=== PATIENT | male | born 1940 | race Caucasian/White ===

== ENCOUNTER 2016-11-27 08:17 | Day surgery (SDC) | payer MEDICARE, OTHER ==
[2016-11-22 12:07] VITALS: BMI 34.2
[~2016-11-27 08:17] MED LIST: LIDOCAINE 1% 20 ML VIAL (10MG/ML) FOR IV START INTRADERMA PRN
[2016-11-27 09:28] VITALS: RESP 16; TEMP 97.3
[2016-11-27] MEDS: LACTATED RINGERS 1,000 ML IV ONE ×2 (09:35→09:44)
[2016-11-27] MEDS ORDERED: LIDOCAINE 1% 20 ML VIAL (10MG/ML) FOR IV START INTRADERMA ONE (09:36)
[2016-11-27] MEDS ORDERED: PROPOFOL 10 MG/ML 20 ML VIAL IV ONE (09:47)
[2016-11-27 10:07] VITALS: PULSE 53
--- NOTE | 2016-11-27 10:22 | P.PCN ---
Date of Procedure: 11/27/16 Procedure(s) Performed: Procedure: Esophagogastroduodenoscopy and biopsy. Preoperative diagnosis: Dysphagia. Postoperative diagnosis: 1. Zenker's diverticulum. 2. Very small sliding hiatal hernia with no obvious esophagitis or complicated reflux disease. 3. Mild gastritis and duodenitis. Preparation and sedation: Was provided by anesthesia. Brief clinical history: The patient is a 76-year-old male who is scheduled for this evaluation because of dysphagia that he has had for some time with worsening over the last few months including episodes of feeling food sticking in his throat and instances of having to bring the food back up. No significant reflux symptoms. No alarm symptoms such as bleeding or weight loss. This would be his first upper endoscopy. Procedure: With the patient on his left lateral decubitus position and after informed consent and adequate sedation, I passed the Olympus GIF-100 60 video upper endoscope through the cricopharyngeus down the esophagus. The endoscope was then passed into the stomach which was insufflated with air and inspected in detail including the retroflex view in the cardia. The endoscope was then passed through the pylorus into the duodenum. GE junction was around 40 cm from the incisors and there was a very small sliding hiatal hernia, less than 1 cm in size. There was no evidence of esophagitis or complicated reflux disease including any evidence of strictures or Cherry's esophagus. The stomach showed minimal mottling and erythema in the antrum and the duodenum showed minimal erythema with no ulcers or erosions. Pyloric channel did not show any ulcers. I obtained multiple biopsies from the duodenum, antrum and esophagus then the endoscope was withdrawn back to the esophagus and hypopharyngeal area. At that point, I continued the examination of the hypopharynx and the cricopharyngeal area trying to pass the endoscope back and forth. It was apparent through some of these steps that the patient had a Zenker's diverticulum. It appeared small and there was no residual food or other material in the diverticulum. The patient tolerated the procedure well. Plan: I summarized the findings to the patient. The patient will follow up in the office and I Will schedule a barium swallow before that. I would make further plans based on the results of the biopsies and the barium swallow. Consideration can be given for scheduling a motility study if the size of the diverticulum on barium swallow does not seem to explain totally his symptoms. I would keep you updated on his progress. He will follow up with you as planned.
[2016-11-27 10:31] VITALS: BP 133/81
== END 2016-11-27 11:29 | disposition home or self-care (01) ==
LOC: ORWHC2ENDO 08:17
DX: K29.50 Unspecified chronic gastritis without bleeding (principal); K22.5 Diverticulum of esophagus, acquired; K44.9 Diaphragmatic hernia without obstruction or gangrene; K29.80 Duodenitis without bleeding; K20.9 Esophagitis, unspecified; I10 Essential (primary) hypertension; E07.9 Disorder of thyroid, unspecified; G47.33 Obstructive sleep apnea (adult) (pediatric); Z79.899 Other long term (current) drug therapy; Z91.040 Latex allergy status; Z91.048 Other nonmedicinal substance allergy status; Z91.09 Other allergy status, other than to drugs and biological substances; Z86.718 Personal history of other venous thrombosis and embolism
CPT/HCPCS: 88305; 88342; 43239; J2704

== ENCOUNTER → 2016-11-30 | Outpatient (CLI) | payer MEDICARE, OTHER ==
--- NOTE | 2016-11-30 10:36 | FL ---
EXAMINATION: Cervical and Thoracic Esophagram DATE OF EXAM: 11/30/2016 9:35 AM CLINICAL INDICATION: 76-year-old male dysphagia, food getting stuck in throat, and Zenker's diverticu lum seen on EGD performed 3 days ago. COMPARISON: Total Fluoroscopy Time: 2.2 minutes FINDINGS: The swallowing mechanism is normal. Moderate sized Zenker's diverticulum opposite the C6 level is see n projecting posteriorly and off towards the right. This progressively accumulates swallowed contrast and remains filled at the end of the exam. The remainder of the hypopharyngeal anatomy is preserved. The cervical and thoracic portions have a normal course and caliber caliber. There is mild tertiary p eristaltic contractions and some blunting of the normal secondary stripping waves resulting in prolon ged pooling of contrast in the esophagus when the patient is supine and prone. The mucosa is normal and no persistent filling defect is encountered. There is a tiny sliding hiatal hernia seen. No gastroesophageal reflux is identified during the cours e of the exam. IMPRESSION: 1. Moderate sized Zenker's diverticulum opposite the C6 level projecting posteriorly and off towards the right. This accumulates contrast and remains filled at the end of the exam. 2. Mild tertiary peristalsis and blunted secondary stripping waves could represent early presbyesopha carlo. 3. Tiny sliding hiatal hernia.
== END | disposition home or self-care (01) ==
LOC: RADFLWHC 08:31
DX: K22.5 Diverticulum of esophagus, acquired (principal); K44.9 Diaphragmatic hernia without obstruction or gangrene; R19.2 Visible peristalsis
CPT/HCPCS: 74220

== ENCOUNTER → 2017-02-01 | Outpatient (CLI) | payer MEDICARE, OTHER ==
--- NOTE | 2017-02-01 21:20 | PN ---
77-year-old gentleman who has been followed in the sleep center for treatment of obstructive sleep apnea/hypopnea syndrome. Patient continued to use his CPAP equipment every night and according to his family he does not snore and does not have episodes of changes of breathing during this sleep. [place] Sleepiness Scale is in normal range. I checked patient's CPAP unit. He uses equipment 100% of the time for more than 4 hours. He decreased his weight from 243 pounds down to 239 pounds. CPAP pressure is 10 cm of water. MEDICATIONS: 1. Diovan. 2. Levothyroxine. 3. Triamterene. During physical exam, the patient in no distress. VITAL SIGNS: BP 128/79, HR 56, RR 16. Height 5 feet 9 inches, weight 239, body mass index 35.2. Temp is 98.0. HEENT: PERRLA, EOMI oropharynx low position of soft palate, small oropharyngeal air space. Neck: Supple. No JVD. Thyroid is not palpable. LUNGS: Clear to percussion and to auscultation. Good air exchange. No wheezing or rhonchi. HEART: S1, S2 regular. No murmurs, gallops, or rubs. ABDOMEN: Obese. Soft and nontender. Bowel sounds are present. No organomegaly appreciated. EXTREMITIES: No clubbing or cyanosis. UNIVERSITY INTERN: Awake, alert, and oriented x3. Cranial nerves 2 to 7 intact. There is no fasciculation or atrophy noted. No focal deficits observed. IMPRESSION: 1. Obstructive sleep apnea/hypopnea syndrome on control with CPAP at the pressure of 10 cm of water. Patient demonstrated 100% compliance with treatment benefitting from treatment. 2. Hypertension. 3. Hypothyroidism. 4. Allergies. 5. Hyperlipidemia. PLAN: 1. The patient will continue to use CPAP equipment every night for the whole night. 2. Prescription for all necessary CPAP supplies. 3. Sleep hygiene with regular time in bed for at least 8 hours. 4. No driving if feeling any sleepiness. Thank you very much for allowing me to participate in the management of your patient. Sincerely, Tylor Stauffer MD, PhD, FAASM. Diplomat of [place] [employer], Sleep Medicine Board by [place] [employer] Specialties [place] [employer] Contact Printer of [facility]
== END | disposition home or self-care (01) ==
LOC: SLEEP 15:59
PROVIDERS: ATTEND Internal Medicine
DX: G47.33 Obstructive sleep apnea (adult) (pediatric) (principal); I10 Essential (primary) hypertension; E03.9 Hypothyroidism, unspecified; Z91.09 Other allergy status, other than to drugs and biological substances; E78.5 Hyperlipidemia, unspecified; Z79.899 Other long term (current) drug therapy

== ENCOUNTER → 2017-06-01 | Outpatient (CLI) | payer MEDICARE, OTHER ==
[2017-06-01 08:59] LABS: Basophils # (A) 0.1 k/uL (0-0.2); Basophils % (A) 1 %; CH 30.2; Eosinophils # (A) 0.1 k/uL (0-0.7); Eosinophils % (A) 2 %; HCT 44.9 % (39.0-53.0); HDW 2.44; HGB 14.7 gm/dL (13.0-17.5); Luc # (Auto) 0.33; Luc % (Auto) 4; Lymphocytes # (A) 3.9 k/uL (1.0-4.8); Lymphocytes % (A) 46 %; MCH 30.1 pg (25.0-35.0); MCHC 32.7 g/dL (31.0-37.0); Mean Platelet Volume 7.7; Monocytes # (A) 0.6 k/uL (0-1.0); Monocytes % (A) 6 %; Neutrophils # (A) 3.6 k/uL (1.3-7.7); Neutrophils % (A) 42 %; RBC 4.88 m/uL (4.30-5.90); RDW 14.4 % (11.5-15.5); WBC 8.7 k/uL (3.8-10.6); WBC (Perox) 8.58
[2017-06-01 11:13] LABS: ALT 46 U/L (21-72); AST 30 U/L (17-59); Alkaline Phosphatase 66 U/L (38-126); Anion Gap 12 mmol/L; Blood Urea Nitrogen 19 mg/dL (9-20); C Reactive Protein 6.8 mg/L (<10.0); Calcium 9.9 mg/dL (8.4-10.2); Carbon Dioxide 26 mmol/L (22-30); Chloride 105 mmol/L (98-107); Cholesterol 233 mg/dL (<200); Creatine Kinase 72 U/L (55-170); Glucose 102 mg/dL (74-99); HDL Cholesterol 106 mg/dL (40-60); Non-African American GFR(MDRD) >60 (>60 ml/min/1.73 sqM); Potassium 4.3 mmol/L (3.5-5.1); Sodium 143 mmol/L (137-145); Total Bilirubin 0.6 mg/dL (0.2-1.3); Triglycerides 141 mg/dL (<150)
[2017-06-01 12:28] LABS: Erythrocyte Sedimentation Rate 8 mm/hr (0-15)
[2017-06-01 12:31] LABS: Hemoglobin A1C 5.8 % (4.2-6.1)
== END | disposition home or self-care (01) ==
LOC: LABWHC1 08:33
PROVIDERS: ATTEND Internal Medicine
DX: Z00.00 Encounter for general adult medical examination without abnormal findings (principal); N40.0 Benign prostatic hyperplasia without lower urinary tract symptoms; N18.3 Chronic kidney disease, stage 3 (moderate); E78.5 Hyperlipidemia, unspecified; I10 Essential (primary) hypertension; E55.9 Vitamin D deficiency, unspecified; G47.33 Obstructive sleep apnea (adult) (pediatric)
CPT/HCPCS: 36415; 80053; 80061; 82306; 82550; 83036; 84153; 84443; 85025; 85652; 86140

== ENCOUNTER → 2018-02-25 | Outpatient (CLI) | payer MEDICARE, OTHER ==
[2018-02-25 15:38] LABS: Potassium 4.2 mmol/L (3.5-5.1)
[2018-02-25 15:39] LABS: Phosphorus 4.4 mg/dL (2.5-4.5)
== END | disposition home or self-care (01) ==
LOC: LABWHC1 15:09
PROVIDERS: ATTEND Internal Medicine
DX: E87.8 Other disorders of electrolyte and fluid balance, not elsewhere classified (principal); I10 Essential (primary) hypertension
CPT/HCPCS: 36415; 80048; 83735; 84100

== ENCOUNTER → 2018-02-28 | Outpatient (CLI) | payer MEDICARE, OTHER ==
--- NOTE | 2018-02-28 15:46 | SFUN ---
SLEEP CENTER FOLLOW UP NOTE DATE OF SERVICE: 02/28/2018 78-year-old gentleman has been followed in Sleep Center for treatment of obstructive sleep apnea-hypopnea syndrome. Patient is on treatment with CPAP for about 33 years and he continued to use CPAP effectively every night without significant problems related to mask fitting, pressure and humidification. I checked his CPAP unit. CPAP pressure is 10 cm of water. He is using it 100% of the time. Average using usage is 8 hours by the reading from the machine. [place] Sleepiness Scale today is 3. MEDICATIONS: Diovan, levothyroxine, triamterene. PHYSICAL EXAM: GENERAL Patient in no distress. VITAL SIGNS BP 146/75, HR 72, RR 16, height 5 feet 9 inches, weight 227, BMI 33.3, temperature 98.3, oxygen saturation room air 96%. HEENT PERRLA, EOMI, evaluation of oropharynx showed moderately low position of soft palate. NECK Supple, no JVD. Thyroid is not palpable. LUNGS Clear to percussion and to auscultation. Good air exchange. No wheezing or rhonchi. HEART S1, S2 regular. No murmurs, gallops, or rubs. ABDOMEN Slightly obese. Soft and nontender. Bowel sounds are present. No organomegaly appreciated. EXTREMITIES No clubbing or cyanosis. TECHNICAL SALES CONSULTANT Awake, alert, and oriented X3. Cranial nerves 2 to 7 intact. There is no fasciculation or atrophy. noted. No focal deficits observed. IMPRESSION: 1. Obstructive sleep apnea-hypopnea syndrome. Patient demonstrated 100% compliance with treatment benefitting from treatment. 2. Hypertension. 3. Hypothyroidism. 4. Hyperlipidemia. 5. Allergy. 6. Status post lumbar laminectomy. 7. Status post broken left fibular in 1996. 8. Status post rotator cuff surgery in 2008. PLAN: 1. Patient will continue to use his CPAP equipment every night for the whole night. 2. Watching and losing weight. 3. Sleep hygiene with regular time in bed for at least 8 hours. 4. No driving if feeling sleepiness. 5. Will maintain prescription for all necessary CPAP supplies including mask, tube, filters. Thank you very much for allowing me to participate in management of your patient. Sincerely, Tylor Stauffer MD, PhD, FAASM Diplomat of [place] [employer] Specialties [place] [employer] Medicine [employer] Developer of [facility] [place] MMODL / IJN: [id number] /
== END | disposition home or self-care (01) ==
LOC: SLEEP 14:05
PROVIDERS: ATTEND Internal Medicine
DX: G47.33 Obstructive sleep apnea (adult) (pediatric) (principal); I10 Essential (primary) hypertension; E03.9 Hypothyroidism, unspecified; E78.5 Hyperlipidemia, unspecified; Z88.9 Allergy status to unspecified drugs, medicaments and biological substances; Z98.890 Other specified postprocedural states; Z99.89 Dependence on other enabling machines and devices; Z79.899 Other long term (current) drug therapy

== ENCOUNTER → 2018-04-29 | Outpatient (CLI) | payer MEDICARE, OTHER ==
[2018-04-29 14:26] LABS: Calcium 10.1 mg/dL (8.4-10.2); Magnesium 2.1 mg/dL (1.6-2.3); Potassium 4.9 mmol/L (3.5-5.1)
== END | disposition home or self-care (01) ==
LOC: LABWHC1 12:47
PROVIDERS: ATTEND Internal Medicine
DX: E87.8 Other disorders of electrolyte and fluid balance, not elsewhere classified (principal)
CPT/HCPCS: 36415; 80048; 83735

== ENCOUNTER → 2018-07-23 | Outpatient (CLI) | payer MEDICARE, OTHER ==
[2018-07-23 08:50] LABS: Basophils % (A) 0 %; Eosinophils # (A) 0.1 k/uL (0-0.7); Eosinophils % (A) 1 %; HCT 42.7 % (39.0-53.0); HGB 13.4 gm/dL (13.0-17.5); Lymphocytes # (A) 1.9 k/uL (1.0-4.8); Lymphocytes % (A) 30 %; MCH 28.9 pg (25.0-35.0); MCHC 31.3 g/dL (31.0-37.0); MCV 92.2 fL (80.0-100.0); Monocytes # (A) 0.5 k/uL (0-1.0); Monocytes % (A) 8 %; Neutrophils # (A) 3.6 k/uL (1.3-7.7); Neutrophils % (A) 57 %; Platelet Count 171 k/uL (150-450); RBC 4.63 m/uL (4.30-5.90); RDW 13.6 % (11.5-15.5); WBC 6.2 k/uL (3.8-10.6)
[2018-07-23 09:21] LABS: Albumin 4.2 g/dL (3.5-5.0); C Reactive Protein 6.2 mg/L (<10.0); Calcium 9.8 mg/dL (8.4-10.2); Potassium 4.5 mmol/L (3.5-5.1); Total Bilirubin 1.1 mg/dL (0.2-1.3); Total Protein 6.9 g/dL (6.3-8.2); Uric Acid 5.6 mg/dL (3.5-8.5)
[2018-07-23 09:31] LABS: T4, Free (Free Thyroxine) 1.28 ng/dL (0.78-2.19)
[2018-07-23 09:46] LABS: Prostate Specific Antigen 0.66 ng/mL (0.00-4.00)
[2018-07-23 12:41] LABS: Erythrocyte Sedimentation Rate 18 mm/hr (0-15)
[2018-07-23 18:57] LABS: Hemoglobin A1C 5.6 % (4.0-6.0)
== END | disposition home or self-care (01) ==
LOC: LABWHC1 08:03
PROVIDERS: ATTEND Internal Medicine
DX: E11.9 Type 2 diabetes mellitus without complications (principal); E78.5 Hyperlipidemia, unspecified; E55.9 Vitamin D deficiency, unspecified; I10 Essential (primary) hypertension; M10.9 Gout, unspecified; N40.0 Benign prostatic hyperplasia without lower urinary tract symptoms
CPT/HCPCS: 36415; 80053; 80061; 82306; 82550; 83036; 84153; 84439; 84443; 84550; 85025; 85652; 86140

== ENCOUNTER 2019-03-12 14:31 | Emergency (ER) | payer MEDICARE, OTHER ==
[2019-03-12 14:44] VITALS: RESP 18
--- NOTE | 2019-03-12 15:20 | ED ---
General Adult HPI - General Chief complaint: Recheck/Abnormal Lab/Rx Stated complaint: High BP Time Seen by Provider: 03/12/19 14:45 Source: patient, RN notes reviewed Mode of arrival: ambulatory Limitations: no limitations - History of Present Illness Initial comments: This is an 79-year-old male who presents to the emergency department stating that he was feeling a little woozy earlier today so he took his blood pressures blood pressure was elevated so decided come to the emergency department. Patient denies any chest pain palpitations difficulty breathing or shortness of breath. Patient denies any near syncopal episode. Patient denies any numbness weakness. Patient denies abdominal pain patient denies nausea vomiting diarrhea. Patient denies any recent fever or chills. Patient states she's on blood pressure medications that he took them today. Patient denies any headache patient denies any blurred vision. - Related Data Home Medications Medication Instructions Recorded Confirmed Cholecalciferol [Vitamin D3] 2,000 unit PO DAILY 11/22/16 11/27/16 Levothyroxine Sodium [Synthroid] 50 mcg PO QAM 11/22/16 11/27/16 Loratadine [Claritin] 10 mg PO DAILY 11/22/16 11/27/16 Acetaminophen Tab [Tylenol Tab] 650 mg PO Q6H PRN 03/12/19 03/12/19 Carboxymethylcellulose Sodium 1 - 2 drops BOTH EYES QID PRN 03/12/19 03/12/19 [Refresh Tears] Hydrochlorothiazide [Hydrodiuril] 12.5 mg PO Q48H 03/12/19 03/12/19 Hydrochlorothiazide [Hydrodiuril] 25 mg PO Q48H 03/12/19 03/12/19 Ibuprofen [Motrin Ib] 400 mg PO Q6H PRN 03/12/19 03/12/19 Losartan Potassium 100 mg PO DAILY 03/12/19 03/12/19 Allergies Allergy/AdvReac Type Severity Reaction Status Date / Time adhesive Allergy skin Verified 03/12/19 16:25 redness amlodipine [From Norvasc] Allergy Verified 03/12/19 16:25 hydralazine Allergy Verified 03/12/19 16:25 latex Allergy skin Verified 03/12/19 16:25 redness montelukast [From Singulair] Allergy Verified 03/12/19 16:25 pantoprazole [From Protonix] Allergy Verified 03/12/19 16:25 Dlqehag-Paj-Wuo Reductase Allergy muscle pain Verified 03/12/19 16:25 Inhibitor Yeast Allergy Rash/Hives Verified 03/12/19 16:25 naproxen AdvReac Abdominal Verified 03/12/19 16:25 Pain DUST Allergy Uncoded 03/12/19 16:25 Review of Systems ROS Statement: Those systems with pertinent positive or pertinent negative responses have been documented in the HPI. ROS Other: All systems not noted in ROS Statement are negative. Past Medical History Past Medical History: Deep Vein Thrombosis (DVT), Eye Disorder, Hearing Disorder / Deafness, Hypertension, Osteoarthritis (OA), Sleep Apnea/CPAP/BIPAP Additional Past Medical History / Comment(s): feels like there is fullness in the throat and food is getting stuck,uses cpap,dvt lt leg May 2016-uses compression stocking,[employer]-timothy hearing aides,macular degeneration timothy eyes,osteoarthritis lt hip History of Any Multi-Drug Resistant Organisms: None Reported Past Surgical History: Back Surgery, Orthopedic Surgery Additional Past Surgical History / Comment(s): rt shoulder repair Past Anesthesia/Blood Transfusion Reactions: Previous Problems w/ Anesthesia Additional Past Anesthesia/Blood Transfusion Reaction / Comment(s): unable to urinated after anesthesia-has had to have catheter.no hx blood transfusion Smoking Status: Former smoker - Past Family History Mother Family Medical History: Cancer, CVA/TIA Additional Family Medical History / Comment(s): uterine Father Family Medical History: CVA/TIA, Myocardial Infarction ([place]) Sister(s) Additional Family Medical History / Comment(s): heart problems General Exam - General Exam Comments Initial Comments: GENERAL: Patient is well-developed and well-nourished. Patient is nontoxic and well- hydrated and is in no acute distress. ENT: Neck is soft and supple. No significant lymphadenopathy is noted. Oropharynx is clear. Moist mucous membranes. Neck has full range of motion without eliciting any pain. EYES: The sclera were anicteric and conjunctiva were pink and moist. Extraocular movements were intact and pupils were equal round and reactive to light. Eyelids were unremarkable. PULMONARY: Unlabored respirations. Good breath sounds bilaterally. No audible rales rhonchi or wheezing was noted. CARDIOVASCULAR: There is a regular rate and rhythm without any murmurs gallops or rubs. ABDOMEN: Soft and nontender with normal bowel sounds. No palpable organomegaly was noted. There is no palpable pulsatile mass. SKIN: Skin is clear with no lesions or rashes and otherwise unremarkable. NEUROLOGIC: Patient is alert and oriented x3. Cranial nerves II through XII are grossly intact. Motor and sensory are also intact. Normal speech, volume and content. Symmetrical smile. MUSCULOSKELETAL: Normal extremities with adequate strength and full range of motion. No lower extremity swelling or edema. No calf tenderness. LYMPHATICS: No significant lymphadenopathy is noted PSYCHIATRIC: Normal psychiatric evaluation. Limitations: no limitations Course Vital Signs 03/12/19 03/12/19 03/12/19 14:43 15:30 15:40 Temperature 98.2 F Pulse Rate 57 L 53 L 50 L Respiratory 18 Rate Blood Pressure 185/90 190/80 169/91 O2 Sat by Pulse 98 98 99 Oximetry 03/12/19 03/12/19 03/12/19 15:50 16:00 16:10 Temperature Pulse Rate 51 L 53 L Respiratory Rate Blood Pressure 172/92 172/92 175/89 O2 Sat by Pulse 97 Oximetry Medical Decision Making - Medical Decision Making EKG shows a marked sinus bradycardia at 49 bpm OR interval 204 QRSs 100 QT interval 458 QTC is 413. Patient's EKG shows no ST segment elevation or depre ssion or T wave abnormalities are noted. - Lab Data Result diagrams: 03/12/19 15:28 03/12/19 15:28 Lab Results 03/12/19 03/12/19 03/12/19 Range/Units 15:28 15:28 15:28 WBC 6.7 (3.8-10.6) k/uL RBC 4.65 (4.30-5.90) m/uL Hgb 13.7 (13.0-17.5) gm/dL Hct 41.4 (39.0-53.0) % MCV 89.0 (80.0-100.0) fL MCH 29.4 (25.0-35.0) pg MCHC 33.0 (31.0-37.0) g/dL RDW 14.5 (11.5-15.5) % Plt Count 206 (150-450) k/uL Neutrophils % 65 % Lymphocytes % 24 % Monocytes % 6 % Eosinophils % 1 % Basophils % 0 % Neutrophils # 4.4 (1.3-7.7) k/uL Lymphocytes # 1.6 (1.0-4.8) k/uL Monocytes # 0.4 (0-1.0) k/uL Eosinophils # 0.1 (0-0.7) k/uL Basophils # 0.0 (0-0.2) k/uL PT 10.4 (9.0-12.0) sec INR 1.0 (<1.2) APTT 24.0 (22.0-30.0) sec Sodium 141 (137-145) mmol/L Potassium 4.4 (3.5-5.1) mmol/L Chloride 106 (98-107) mmol/L Carbon Dioxide 24 (22-30) mmol/L Anion Gap 11 mmol/L BUN 19 (9-20) mg/dL Creatinine 1.08 (0.66-1.25) mg/dL Est GFR (CKD-EPI)AfAm 75 (>60 ml/min/1.73 sqM) Est GFR (CKD-EPI)NonAf 64 (>60 ml/min/1.73 sqM) Glucose 93 (74-99) mg/dL Calcium 10.3 H (8.4-10.2) mg/dL Magnesium 1.9 (1.6-2.3) mg/dL Total Bilirubin 0.7 (0.2-1.3) mg/dL AST 30 (17-59) U/L ALT 23 (21-72) U/L Alkaline Phosphatase 63 (38-126) U/L Troponin I (0.000-0.034) ng/mL Total Protein 7.1 (6.3-8.2) g/dL Albumin 4.4 (3.5-5.0) g/dL 03/12/19 Range/Units 15:28 WBC (3.8-10.6) k/uL RBC (4.30-5.90) m/uL Hgb (13.0-17.5) gm/dL Hct (39.0-53.0) % MCV (80.0-100.0) fL MCH (25.0-35.0) pg MCHC (31.0-37.0) g/dL RDW (11.5-15.5) % Plt Count (150-450) k/uL Neutrophils % % Lymphocytes % % Monocytes % % Eosinophils % % Basophils % % Neutrophils # (1.3-7.7) k/uL Lymphocytes # (1.0-4.8) k/uL Monocytes # (0-1.0) k/uL Eosinophils # (0-0.7) k/uL Basophils # (0-0.2) k/uL PT (9.0-12.0) sec INR (<1.2) APTT (22.0-30.0) sec Sodium (137-145) mmol/L Potassium (3.5-5.1) mmol/L Chloride (98-107) mmol/L Carbon Dioxide (22-30) mmol/L Anion Gap mmol/L BUN (9-20) mg/dL Creatinine (0.66-1.25) mg/dL Est GFR (CKD-EPI)AfAm (>60 ml/min/1.73 sqM) Est GFR (CKD-EPI)NonAf (>60 ml/min/1.73 sqM) Glucose (74-99) mg/dL Calcium (8.4-10.2) mg/dL Magnesium (1.6-2.3) mg/dL Total Bilirubin (0.2-1.3) mg/dL AST (17-59) U/L ALT (21-72) U/L Alkaline Phosphatase (38-126) U/L Troponin I <0.012 (0.000-0.034) ng/mL Total Protein (6.3-8.2) g/dL Albumin (3.5-5.0) g/dL Disposition Clinical Impression: Hypertension Disposition: HOME SELF-CARE Condition: Good Instructions (If sedation given, give patient instructions): Hypertension (ED) Is patient prescribed a controlled substance at d/c from ED?: No Referrals: Riley Drake MD [Primary Care Provider] - 1-2 days Time of Disposition: 16:29
[2019-03-12 15:46] LABS: Basophils % (A) 0 %; Eosinophils # (A) 0.1 k/uL (0-0.7); Eosinophils % (A) 1 %; HCT 41.4 % (39.0-53.0); HGB 13.7 gm/dL (13.0-17.5); Lymphocytes # (A) 1.6 k/uL (1.0-4.8); Lymphocytes % (A) 24 %; MCH 29.4 pg (25.0-35.0); Mean Platelet Volume 8.1; Monocytes # (A) 0.4 k/uL (0-1.0); Monocytes % (A) 6 %; Neutrophils # (A) 4.4 k/uL (1.3-7.7); Neutrophils % (A) 65 %; Platelet Count 206 k/uL (150-450); RBC 4.65 m/uL (4.30-5.90); RDW 14.5 % (11.5-15.5); WBC 6.7 k/uL (3.8-10.6)
[2019-03-12 15:51] LABS: Prothrombin Time 10.4 sec (9.0-12.0)
[2019-03-12 15:52] LABS: Albumin 4.4 g/dL (3.5-5.0); Calcium 10.3 mg/dL (8.4-10.2); Magnesium 1.9 mg/dL (1.6-2.3); Potassium 4.4 mmol/L (3.5-5.1); Total Bilirubin 0.7 mg/dL (0.2-1.3); Total Protein 7.1 g/dL (6.3-8.2)
--- NOTE | 2019-03-12 16:03 | XR ---
EXAMINATION TYPE: XR chest 2V DATE OF EXAM: 03/12/2019 COMPARISON: NONE HISTORY: Hypertension. TECHNIQUE: Frontal and lateral views of the chest are obtained. FINDINGS: There is chronic emphysematous changes without suspicious focal air space opacity, pleural effusion, or pneumothorax seen. The cardiac silhouette size is mildly enlarged. Multilevel spurring in the thoracic spine is present. Degenerative change right shoulder is noted. IMPRESSION: Chronic changes and mild cardiomegaly without acute pulmonary process.
[2019-03-12] MEDS: hydrALAZINE HCL 20 MG/ML 1 ML VIAL IVP STA ×2 (16:33→16:41)
[2019-03-12] MEDS ORDERED: LABETALOL SYRINGE 5 MG/ML IVP STA (16:38)
[2019-03-12] MEDS ORDERED: LABETALOL 5 MG/ML VIAL MDV IVP STA (17:39)
[2019-03-12 18:36] VITALS: BP 164/89; PULSE 50; TEMP 97.8
== END 2019-03-12 18:36 | disposition home or self-care (01) ==
LOC: EC 14:31
DX: I10 Essential (primary) hypertension (principal); R00.1 Bradycardia, unspecified; H91.93 Unspecified hearing loss, bilateral; G47.30 Sleep apnea, unspecified; Z87.891 Personal history of nicotine dependence; Z88.6 Allergy status to analgesic agent; Z88.8 Allergy status to other drugs, medicaments and biological substances; Z91.040 Latex allergy status; Z91.048 Other nonmedicinal substance allergy status; Z79.890 Hormone replacement therapy; Z79.899 Other long term (current) drug therapy; Z86.718 Personal history of other venous thrombosis and embolism; Z97.4 Presence of external hearing-aid; Z99.89 Dependence on other enabling machines and devices; Z82.49 Family history of ischemic heart disease and other diseases of the circulatory system; Z53.8 Procedure and treatment not carried out for other reasons
CPT/HCPCS: 36415; 71046; 80053; 83735; 84484; 85025; 85610; 85730; 96374; 96376; 99284

== ENCOUNTER → 2019-03-20 | Outpatient (CLI) | payer MEDICARE, OTHER ==
--- NOTE | 2019-03-20 15:09 | SFUN ---
SLEEP CENTER FOLLOW UP NOTE DATE OF SERVICE: 03/20/2019 An 79-year-old gentleman has been followed in the Sleep Center for treatment of obstructive sleep apnea-hypopnea syndrome. Patient successfully continued to use his CPAP equipment every night for the whole night. Takes it with him for any travel. [place] Sleepiness Scale today is only 2. I checked patient's CPAP unit. CPAP pressure is 10 cm of water. Usage is 29/30 nights more than 4 hours. Average usage 8.2 hours. Patient does not have information about apnea-hypopnea index. MEDICATIONS: Levothyroxine, losartan, hydrochlorothiazide, vitamin D3 supplement. PHYSICAL EXAM: Patient in no distress. BP 158/79, HR 66, RR 16, weight 215.4 pounds, body mass index 31.7, temperature 97.8. OROPHARYNX: Moderately low position of soft palate. Neck Supple, no JVD. Thyroid is not palpable. LUNGS Clear to percussion and to auscultation. Good air exchange. No wheezing or rhonchi. HEART S1, S2 regular. No murmurs, gallops, or rubs. ABDOMEN Soft and nontender. Bowel sounds are present. No organomegaly appreciated. EXTREMITIES No clubbing or cyanosis. STRETCH BOX TENDER Awake, alert, and oriented X3. Cranial nerves 2 to 7 intact. There is no fasciculation or atrophy. noted. No focal deficits observed. IMPRESSION: 1. Obstructive sleep apnea-hypopnea syndrome. Patient demonstrated 100% compliance with treatment, benefitting from treatment. 2. Hypertension. 3. Hypothyroidism. 4. Hyperlipidemia. 5. Allergy. 6. History of hiatal hernia. 7. Status post lumbar laminectomy. 8. Status post broken left fibula in 1996, status post rotator cuff surgery in 2008. 9. Status post left eye cataract surgery 1 month ago. PLAN: 1. Patient will continue to use CPAP equipment every night for the whole night. 2. Prescription for new CPAP unit with a CPAP pressure 10 cm of water. 3. I will see patient for followup visit. He will get new CPAP unit to check apnea- hypopnea index reading from the machine. 4. Watching and losing weight. 5. No driving if feeling sleepiness. Thank you very much for allowing me to participate in the management of your patient. Sincerely, Tylor Stauffer MD, PhD, FAASM Diplomat of [place] [employer] Specialties [place] [employer] of Internal Medicine Territory Development Manager of [facility] [place] MMBARBRAL / SHAINAN: [id number] /
== END | disposition home or self-care (01) ==
LOC: SLEEP 13:59
PROVIDERS: ATTEND Internal Medicine
DX: G47.33 Obstructive sleep apnea (adult) (pediatric) (principal); I10 Essential (primary) hypertension; E03.9 Hypothyroidism, unspecified; E78.5 Hyperlipidemia, unspecified; T78.40XA Allergy, unspecified, initial encounter; Z87.19 Personal history of other diseases of the digestive system; Z98.890 Other specified postprocedural states; Z98.42 Cataract extraction status, left eye; Z99.89 Dependence on other enabling machines and devices; Z79.899 Other long term (current) drug therapy

== ENCOUNTER → 2019-06-12 | Outpatient (CLI) | payer MEDICARE, OTHER ==
--- NOTE | 2019-06-12 16:38 | PN ---
PROGRESS NOTE DATE OF SERVICE: 06/12/2019 This patient is an 79-year-old gentleman who has been followed in Sleep Center for treatment of obstructive sleep apnea-hypopnea syndrome. Recently the patient received a new CPAP unit. This is his first visit after he received the new CPAP equipment. He is able to use equipment every night for the whole night without significant problems, except he could see a red face on the machine, indicating that he has a leak from his mask. [place] Sleepiness Scale today is 3. I checked his CPAP unit. CPAP pressure is 10 cm of water. The patient is using the equipment every night for the whole night with average usage 8.1 hours per night. Leak reading is up to 55 L/minute for the last month, which is in high range. Apnea- hypopnea index is only 4.6, which is in normal range. MEDICATIONS: 1. Levothyroxine. 2. Losartan. 3. Hydrochlorothiazide. 4. Vitamin D3 supplement. PHYSICAL EXAMINATION: GENERAL: A pleasant patient in no distress. VITAL SIGNS: BP 159/88, HR 58, RR 16, weight 219, temperature 98.7, oxygen saturation at room air 97%. HEENT: PERRLA, EOMI. Evaluation of oropharynx showed tongue protrudes midline. Low position of soft palate. Mallampati III. NECK: Supple. No JVD. Thyroid is not palpable. LUNGS: Clear to percussion and to auscultation. Good air exchange. No wheezing or rhonchi. HEART: S1, S2 regular. No murmurs, gallops or rubs. ABDOMEN: Slightly obese. EXTREMITIES: No clubbing or cyanosis. DIRECTOR OF SCIENTIFIC RESEARCH: Awake, alert, and oriented X3. Cranial nerves 2 to 7 intact. There is no fasciculation or atrophy. noted. No focal deficits observed. IMPRESSION: 1. Obstructive sleep apnea-hypopnea syndrome. Patient demonstrated 100% compliance with treatment, benefitting from treatment. 2. Quite high leak reading from the machine. The patient opens his mouth, according to the family. 3. Hypertension. 4. Hypothyroidism. 5. Hyperlipidemia. 6. Allergies. 7. History of hiatal hernia. 8. Status post lumbar laminectomy. 9. Status post fracture of left fibula. 10.Status post rotator cuff surgery in 2008. 11.Status post cataract surgery. PLAN: 1. Prescription for chin strap. 2. Patient will continue to use CPAP equipment every night for the whole night. 3. Watching and losing weight. 4. Sleep hygiene with regular time in bed for 8 hours. 5. No driving if feeling any sleepiness. Thank you very much for allowing me to participate in the management of your patient. Sincerely, Tylor Stauffer MD, PhD, FAASM Diplomat of [place] [employer] [place] [employer] Medicine Continuous Pillowcase Cutter of [facility] [place] MMODL / SHAINAN: [id number] /

== ENCOUNTER → 2019-08-12 | Outpatient (CLI) | payer MEDICARE, OTHER ==
[2019-08-12 10:38] LABS: Basophils % (A) 0 %; Eosinophils # (A) 0.1 k/uL (0-0.7); Eosinophils % (A) 2 %; HCT 38.8 % (39.0-53.0); Lymphocytes # (A) 2.2 k/uL (1.0-4.8); Lymphocytes % (A) 36 %; MCH 29.5 pg (25.0-35.0); MCHC 33.6 g/dL (31.0-37.0); Mean Platelet Volume 6.8; Monocytes # (A) 0.4 k/uL (0-1.0); Monocytes % (A) 6 %; Neutrophils # (A) 3.2 k/uL (1.3-7.7); Neutrophils % (A) 52 %; Platelet Count 205 k/uL (150-450); RBC 4.41 m/uL (4.30-5.90); RDW 13.6 % (11.5-15.5); WBC 6.1 k/uL (3.8-10.6)
[2019-08-12 18:42] LABS: African American GFR (CKD) 73.1 (60.0-200.0); Albumin 4.3 g/dL (3.80-4.90); Albumin/Globulin Ratio 2.39 (1.60-3.17); Anion Gap 8.2 mmol/L (4.00-12.00); BUN/Creat Ratio 16.36 Ratio (12.00-20.00); Calcium 9.7 mg/dL (8.7-10.3); Carbon Dioxide 26.8 mmol/L (21.6-31.8); Chol/HDL Ratio 2.09; Globulin 1.8 g/dL (1.6-3.3); Potassium 4.3 mmol/L (3.5-5.5); Total Protein 6.1 g/dL (6.2-8.2)
== END | disposition home or self-care (01) ==
LOC: LABWHC1 09:47
PROVIDERS: ATTEND Internal Medicine
DX: D64.9 Anemia, unspecified (principal); N40.0 Benign prostatic hyperplasia without lower urinary tract symptoms; E87.8 Other disorders of electrolyte and fluid balance, not elsewhere classified; E78.5 Hyperlipidemia, unspecified; I10 Essential (primary) hypertension; E55.9 Vitamin D deficiency, unspecified
CPT/HCPCS: 36415; 80053; 80061; 82306; 84153; 85025

== ENCOUNTER → 2020-08-17 | Outpatient (CLI) | payer MEDICARE, OTHER ==
[2020-08-17 12:16] LABS: Basophils % (A) 0 %; Eosinophils # (A) 0.1 k/uL (0-0.7); Eosinophils % (A) 1 %; HCT 42.5 % (39.0-53.0); HGB 13.5 gm/dL (13.0-17.5); Lymphocytes # (A) 2.4 k/uL (1.0-4.8); Lymphocytes % (A) 35 %; MCHC 31.8 g/dL (31.0-37.0); MCV 91.3 fL (80.0-100.0); Mean Platelet Volume 7.9; Monocytes # (A) 0.5 k/uL (0-1.0); Monocytes % (A) 7 %; Neutrophils # (A) 3.8 k/uL (1.3-7.7); Neutrophils % (A) 55 %; Platelet Count 199 k/uL (150-450); RBC 4.65 m/uL (4.30-5.90); RDW 13.6 % (11.5-15.5)
[2020-08-17 19:31] LABS: Erythrocyte Sedimentation Rate 9 mm/Hr (0-20)
[2020-08-17 21:16] LABS: T4, Free (Free Thyroxine) 1.2 ng/dL (0.80-1.80)
[2020-08-18 00:52] LABS: African American GFR (CKD) 72.6 (60.0-200.0); Albumin 4.5 g/dL (3.80-4.90); Albumin/Globulin Ratio 2.14 (1.60-3.17); Anion Gap 10.5 mmol/L (4.00-12.00); BUN/Creat Ratio 17.27 Ratio (12.00-20.00); Calcium 9.8 mg/dL (8.7-10.3); Carbon Dioxide 26.5 mmol/L (21.6-31.8); Chol/HDL Ratio 2.2; Globulin 2.1 g/dL (1.6-3.3); Non-African American GFR(CKD) 62.6 (60.0-200.0); Potassium 4.6 mmol/L (3.5-5.5); Prostate Specific Antigen 0.4 ng/mL (0.0-6.5); Total Bilirubin 0.7 mg/dL (0.3-1.2); Total Protein 6.6 g/dL (6.2-8.2)
== END | disposition home or self-care (01) ==
LOC: LABWHC1 09:57
PROVIDERS: ATTEND Internal Medicine
DX: N40.0 Benign prostatic hyperplasia without lower urinary tract symptoms (principal); E78.5 Hyperlipidemia, unspecified; E03.9 Hypothyroidism, unspecified; E55.9 Vitamin D deficiency, unspecified; I10 Essential (primary) hypertension
CPT/HCPCS: 36415; 80053; 80061; 82306; 82550; 84153; 84439; 84443; 85025; 85652

== ENCOUNTER → 2020-09-02 | Outpatient (CLI) | payer MEDICARE, OTHER ==
--- NOTE | 2020-09-02 20:47 | SFUN ---
SLEEP CENTER FOLLOW UP NOTE DATE OF SERVICE: 09/02/2020 This is an 80-year-old gentleman who has been followed in Sleep Center for treatment of obstructive sleep apnea-hypopnea syndrome. The patient successfully continues to use CPAP equipment every night for the whole night. Occasionally he may have a little bit of snoring, according to his . Brigantine Sleepiness Scale today is 2, which is normal. I checked his CPAP unit. CPAP pressure is 10 cm of water. Usage is 30/30 nights for more than 4 hours with average usage 8.6 hours per night. Leak is 22 L/minute. Apnea- hypopnea index reading is 6.8. Previously the patient had a chinstrap, but now his chinstrap is old and it needs to be replaced. MEDICATIONS: 1. Losartan 100 mg once daily. 2. Levothyroxine 50 mcg one daily. 3. Hydrochlorothiazide 25 mg half pill once daily. 4. Claritin 10 mg once daily. PHYSICAL EXAMINATION: GENERAL: A pleasant patient in no distress. VITAL SIGNS: BP 140/69, HR 56, RR 15, height 5 feet 9-1/2 inches, weight 204, BMI 29.6, temperature 98.1. Oxygen saturation at room air 99%. HEENT: PERRLA, EOMI. Evaluation of oropharynx showed tongue protrudes midline. Low position of soft palate. Mallampati III. NECK: Supple. No JVD. Thyroid is not palpable. LUNGS: Clear to percussion and to auscultation. Good air exchange. No wheezing or rhonchi. HEART: S1, S2 regular. No murmurs, gallops or rubs. ABDOMEN: Soft, nontender. No organomegaly. Bowel sounds are heard in all four quadrants. EXTREMITIES: No clubbing or cyanosis. ENGINEER OPERATIONS AND MAINTENANCE: Awake, alert, and oriented X3. Cranial nerves 2 to 7 intact. There is no fasciculation or atrophy. noted. No focal deficits observed. IMPRESSION: 1. Obstructive sleep apnea-hypopnea syndrome. The patient demonstrated 100% compliance with treatment, benefitting from treatment. 2. Episodes of snoring with slight leak, but significantly better than during the visit one year ago. 3. Hypertension. 4. Hypothyroidism. 5. Hyperlipidemia. 6. Allergies. 7. History of hiatal hernia. 8. Status post lumbar laminectomy. 9. Status post fracture of left fibula. 10.Status post rotator cuff surgery in 2008. 11.Status post cataract surgery. PLAN: 1. Patient will continue to use PAP equipment every night for the whole night. I increased pressure in CPAP to 11 cm of water. 2. Sleep hygiene with regular time in bed for at least 7-1/2 to 8 hours. 3. Precautions related to driving. No driving if feeling sleepiness. 4. I will maintain all necessary prescription for PAP supplies including mask, tube, filters. Prescription for ComfortGel small, medium mask, chinstrap. 5. Watching weight. 6. No driving if feeling sleepiness. 7. Follow-up visit in 6 months or earlier if patient has any problems. Thank you very much for allowing me to participate in the management of your patient. Sincerely, Tylor Stauffer MD, PhD, FAASM Diplomat of [employer] [employer] [employer] Diet Attendant of [facility] [place] MMODL / SHAINAN: [phone] /
== END | disposition home or self-care (01) ==
LOC: SLEEP 15:53
PROVIDERS: ATTEND Internal Medicine
DX: G47.33 Obstructive sleep apnea (adult) (pediatric) (principal); I10 Essential (primary) hypertension; E03.9 Hypothyroidism, unspecified; E78.5 Hyperlipidemia, unspecified; Z87.19 Personal history of other diseases of the digestive system; Z98.49 Cataract extraction status, unspecified eye; Z98.890 Other specified postprocedural states; Z99.89 Dependence on other enabling machines and devices

== ENCOUNTER → 2020-11-18 | Outpatient (CLI) | payer MEDICARE, OTHER ==
[2020-11-18 17:57] LABS: Protein, Total 6.6 g/dL (6.2-8.2)
[2020-11-18 20:54] LABS: Anti-DNA, DS unit <1.0 IU/mL; Anti-Smith Ab Interp NEGATIVE (NEGATIVE); DNA Double-Stranded NEGATIVE (NEGATIVE)
[2020-11-18 20:55] LABS: Chol/HDL Ratio 2.23; LDL Cholesterol,Calculated 114.4 mg/dL (0.0-131.0); VLDL Calculation 20.6 mg/dL (5.00-40.00)
[2020-11-19 15:09] LABS: Albumin 4.05 g/dL (3.80-4.90); Gamma Globulin 0.64 g/dL (0.70-1.50)
[2020-11-19 15:22] LABS: C-ANCA <1:20 Titer (<1:20)
== END | disposition home or self-care (01) ==
LOC: LABWHC1 09:41
PROVIDERS: ATTEND Internal Medicine
DX: E78.5 Hyperlipidemia, unspecified (principal); M35.9 Systemic involvement of connective tissue, unspecified
CPT/HCPCS: 36415; 80061; 84165; 86038; 86157; 86225; 86235; 86255; 86334

== ENCOUNTER → 2021-09-01 | Outpatient (CLI) | payer MEDICARE, OTHER ==
--- NOTE | 2021-09-01 19:43 | SFUN ---
SLEEP CENTER FOLLOW UP NOTE DATE OF SERVICE: 09/01/2021 This 81-year-old gentleman has been followed in Sleep Center for treatment of obstructive sleep apnea-hypopnea syndrome. The patient continues to use his CPAP equipment every night. Occasionally he has snoring with the CPAP, although during his last visit I already increased the pressure slightly with the goal to stop snoring. [place] Sleepiness Scale today is 2, which is totally normal. I checked the patient's CPAP unit. CPAP pressure is 11 cm of water. Usage is 30/30 nights for more than 4 hours, average 7.7 hours per night. Leak is 34 L/minute, which is slightly increased. Apnea-hypopnea index is 5, which is borderline. Apnea-hypopnea index is reduced compared with the previous visit, when it was 6.8. MEDICATIONS: 1. Losartan 100 mg once a day. 2. Levothyroxine 50 mcg once a day. 3. Hydrochlorothiazide 12.5 mg once a day. 4. Claritin 10 mg once a day. PHYSICAL EXAMINATION: GENERAL: Pleasant patient in no distress. VITAL SIGNS: BP 151/87, HR 57, RR 15, height 5 feet 9 inches, weight 200.6, body mass index 29.5, temperature 97.3, oxygen saturation at room air 99%. HEENT: PERRLA, EOMI, evaluation of oropharynx showed tongue protrudes midline. Low position of soft palate; Mallampati III. NECK: Supple, no JVD. Thyroid is not palpable. LUNGS: Clear to percussion and to auscultation. Good air exchange. No wheezing or rhonchi. HEART: S1, S2 regular. No murmurs, gallops, or rubs. ABDOMEN: Soft and nontender. Bowel sounds are present. No organomegaly appreciated. EXTREMITIES: No clubbing or cyanosis. PUBLIC RELATIONS COORDINATOR: Awake, alert, and oriented X3. Cranial nerves 2 to 7 intact. There is no fasciculation or atrophy. noted. No focal deficits observed. IMPRESSION: 1. Obstructive sleep apnea-hypopnea syndrome. Patient demonstrated 100% compliance with treatment, benefitting from treatment. Apnea-hypopnea index borderline; improved compared with the previous visit, when pressure was increased. He still has some leak and episodes of snoring. 2. Hypertension. 3. Hypothyroidism. 4. Hyperlipidemia. 5. Allergies. 6. History of hiatal hernia. 7. Status post lumbar laminectomy. 8. Status post fracture of left fibula. 9. Status post rotator cuff surgery in 2009. 10.Status post cataract surgery. PLAN: 1. I changed regimen of the machine to automatic. Range of the pressure 7-15. 2. Patient will continue to use PAP equipment every night for the whole night. 3. Sleep hygiene with regular time in bed for at least 7-1/2 to 8 hours. 4. Precautions related to driving. No driving if feeling sleepiness. 5. I will maintain all necessary prescription for PAP supplies including mask, tube, filters. 6. Watching weight. 7. Follow-up visit in 6 months or earlier if patient has any problems. Thank you very much for allowing me to participate in the management of your patient. Sincerely, Tylor Stauffer MD, PhD, FAASM Diplomat of [place] [employer] Sleep Medicine Board of [place] [employer] Medicine Personal Injury Paralegal of [facility] [place] MMODL / SHAINAN: [phone] /
== END | disposition home or self-care (01) ==
LOC: SLEEP 13:47
PROVIDERS: ATTEND Internal Medicine
DX: G47.33 Obstructive sleep apnea (adult) (pediatric) (principal); I10 Essential (primary) hypertension; E03.9 Hypothyroidism, unspecified; E78.5 Hyperlipidemia, unspecified; M96.1 Postlaminectomy syndrome, not elsewhere classified; Z98.49 Cataract extraction status, unspecified eye

== ENCOUNTER → 2021-09-20 | Outpatient (CLI) | payer MEDICARE, OTHER ==
[2021-09-20 16:41] LABS: Basophils # (A) 0.03 X 10*3/uL (0.00-0.10); Basophils % (A) 0.4 %; Eosinophils # (A) 0.05 X 10*3/uL (0.04-0.35); Eosinophils % (A) 0.7 %; HCT 40.4 % (39.6-50.0); HGB 12.7 g/dL (13.0-17.0); Lymphocytes # (A) 1.86 X 10*3/uL (0.90-5.00); Lymphocytes % (A) 26.1 %; MCH 28.9 pg (27.0-32.0); MCHC 31.4 g/dL (32.0-37.0); Monocytes # (A) 0.68 X 10*3/uL (0.20-1.00); Monocytes % (A) 9.5 %; Platelet Count 204 X 10*3/uL (140-440); RBC 4.39 X 10*6/uL (4.40-5.60); RDW 14.5 % (11.5-14.5); WBC 7.14 X 10*3/uL (4.50-10.00)
[2021-09-20 18:16] LABS: ALT 16 U/L (10-49); AST 22 U/L (14-35); African American GFR (CKD) 72.1 (60.0-200.0); Albumin 4.5 g/dL (3.8-4.9); Albumin/Globulin Ratio 2.05 (1.60-3.17); Alkaline Phosphatase 75 U/L (41-126); Blood Urea Nitrogen 18.7 mg/dL (9.0-27.0); Calcium 9.8 mg/dL (8.7-10.3); Carbon Dioxide 23.7 mmol/L (21.6-31.8); Chloride 106 mmol/L (96-109); Chol/HDL Ratio 2.23 Ratio; Creatine Kinase 66 U/L (35-257); Globulin 2.2 g/dL (1.6-3.3); Glucose 95 mg/dL (70-110); LDL Cholesterol,Calculated 130.9 mg/dL (0.0-131.0); Magnesium 2.2 mg/dL (1.5-2.4); Non-African American GFR(CKD) 62.2 (60.0-200.0); Phosphorus 3.5 mg/dL (2.4-5.1); Potassium 4.2 mmol/L (3.5-5.5); Sodium 143 mmol/L (135-145); Total Protein 6.7 g/dL (6.2-8.2); Uric Acid 5.2 mg/dL (3.7-8.7)
[2021-09-20 18:49] LABS: Erythrocyte Sedimentation Rate 10 mm/Hr (0-20)
[2021-09-20 19:25] LABS: C Reactive Protein <0.30 mg/dL (0.00-0.80)
== END | disposition home or self-care (01) ==
LOC: LABWHC1 09:47
PROVIDERS: ATTEND Internal Medicine
DX: Z00.00 Encounter for general adult medical examination without abnormal findings (principal); D64.9 Anemia, unspecified; N40.0 Benign prostatic hyperplasia without lower urinary tract symptoms; I10 Essential (primary) hypertension; E78.5 Hyperlipidemia, unspecified; E55.9 Vitamin D deficiency, unspecified
CPT/HCPCS: 36415; 80053; 80061; 82306; 82550; 83735; 84100; 84153; 84439; 84443; 84550; 85025; 85652; 86140

== ENCOUNTER → 2022-03-02 | Outpatient (CLI) | payer MEDICARE, OTHER ==
--- NOTE | 2022-03-02 17:59 | SFUN ---
SLEEP CENTER FOLLOW UP NOTE DATE OF SERVICE: 03/02/2022 This 82-year-old gentleman has been followed in Sleep Center for treatment of obstructive sleep apnea-hypopnea syndrome. The patient continues to use CPAP equipment every night and likes how it works now; during the previous visit, I changed regimen of the machine to automatic. He is getting all his CPAP supplies on time. I checked his CPAP unit. Range of the pressure is 7 to 15, average pressure 13, usage 30/30 nights for more than 4 hours, average 7.3 hours per night. Leak is 32 L/minute. Apnea-hypopnea index is 6.7. MEDICATIONS: 1. Losartan 100 mg once a day. 2. Levothyroxine 50 mcg once a day. 3. Hydrochlorothiazide 25 mg half pill once a day. 4. Claritin 10 mg once a day. PHYSICAL EXAMINATION: GENERAL: Pleasant patient in no distress. VITAL SIGNS: BP 126/72, HR 67, RR 16, weight 201 pounds, height 5 feet 9 inches, temperature 97.7, oxygen saturation room air 98%. HEENT: PERRLA, EOMI, evaluation of oropharynx showed tongue protrudes midline. Low position of soft palate; Mallampati III. NECK: Supple, no JVD. Thyroid is not palpable. LUNGS: Clear to percussion and to auscultation. Good air exchange. No wheezing or rhonchi. HEART: S1, S2 regular. No murmurs, gallops, or rubs. ABDOMEN: Soft and nontender. Bowel sounds are present. No organomegaly appreciated. EXTREMITIES: No clubbing or cyanosis. FEED HOUSE SUPERVISOR: Awake, alert, and oriented X3. Cranial nerves 2 to 7 intact. There is no fasciculation or atrophy. noted. No focal deficits observed. IMPRESSION: 1. Obstructive sleep apnea-hypopnea syndrome. Patient demonstrated great compliance with treatment, benefitting from treatment. Normal respiration on CPAP. 2. Hypertension. 3. Hyperlipidemia. 4. Hypothyroidism. 5. Allergies. 6. History of hiatal hernia. 7. Status post lumbar laminectomy. 8. Status post fracture of left fibula. 9. Status post rotator cuff surgery in 2008. 10.Status post cataract surgery. PLAN: 1. Patient will continue to use PAP equipment every night for the whole night. 2. Sleep hygiene with regular time in bed for at least 7-1/2 to 8 hours. 3. Precautions related to driving. No driving if feeling sleepiness. 4. I will maintain all necessary prescription for PAP supplies including mask, tube, filters. 5. Watching weight. 6. Follow-up visit in 6 months or earlier if patient has any problems. Thank you very much for allowing me to participate in the management of your patient. Sincerely, Tylor Stauffer MD, PhD, FAASM Diplomat of [employer]ties Sleep Medicine Board of [place] [employer] Medicine Websphere Portal Developer of [facility] [place] MMBARBRAL / SHAINAN: [phone] /
== END | disposition home or self-care (01) ==
LOC: SLEEP 14:24
PROVIDERS: ATTEND Internal Medicine
DX: G47.33 Obstructive sleep apnea (adult) (pediatric) (principal); I10 Essential (primary) hypertension; E78.5 Hyperlipidemia, unspecified; E03.9 Hypothyroidism, unspecified; T78.40XA Allergy, unspecified, initial encounter; Z87.19 Personal history of other diseases of the digestive system; Z98.890 Other specified postprocedural states

== ENCOUNTER 2022-06-04 08:08 | Emergency (ER) | payer MEDICARE, OTHER ==
[2022-06-04 08:13] VITALS: TEMP 98
[2022-06-04] MEDS ORDERED: NITROGLYCERIN SL TABS 0.4 MG TAB SUBLINGUAL STA ×2 (08:25→09:14)
[2022-06-04] MEDS ORDERED: SODIUM CHLORIDE 0.9% 1,000 ML IV STA (08:25)
--- NOTE | 2022-06-04 08:28 | ED ---
Chest Pain HPI - General Chief Complaint: Chest Pain Stated Complaint: SOB, chest tightness & back pain Time Seen by Provider: 06/04/22 08:14 Source: patient, RN notes reviewed Mode of arrival: wheelchair Limitations: no limitations - History of Present Illness Initial Comments: 82-year-old male with no prior history of heart disease or lung disease who states he had the onset just prior to arrival of left upper back pain with 10- 15/10 severity he states it was just a sudden jolt he cannot quantify it anything more than that he states also radiates to the anterior chest for some heaviness or pressure. His shortness of breath with it. The fevers chills or sweats no nausea vomiting. He states he normally is bradycardic with a heart rate would effect at 55. The current complaints or modifying factors pain is now about 6-7/10 in severity MD Complaint: chest pain - Related Data Home Medications Medication Instructions Recorded Confirmed Levothyroxine Sodium [Synthroid] 50 mcg PO [id number]-[id number] 11/22/16 06/04/22 Loratadine [Claritin] 10 mg PO DAILY 11/22/16 06/04/22 Carboxymethylcellulose Sodium 1 - 2 drops BOTH EYES QID PRN 03/12/19 06/04/22 [Refresh Tears] Ibuprofen [Motrin Ib] 100 - 200 mg PO Q6H PRN 03/12/19 06/04/22 Losartan Potassium 100 mg PO DAILY 03/12/19 06/04/22 Eye Wash 1 applic BOTH EYES DAILY PRN 06/04/22 06/04/22 Multivit-Min/FA/Lycopen/Lutein 1 tab PO DAILY 06/04/22 06/04/22 [Centrum Silver Tablet] Vit C/E/Zn/Coppr/Lutein/Zeaxan 1 cap PO DAILY 06/04/22 06/04/22 [Preservision Areds 2 Softgel] Allergies Allergy/AdvReac Type Severity Reaction Status Date / Time adhesive Allergy skin Verified 06/04/22 11:10 redness amlodipine [From Norvasc] Allergy Unknown Verified 06/04/22 11:10 hydralazine Allergy Unknown Verified 06/04/22 11:10 latex Allergy skin Verified 06/04/22 11:10 redness montelukast [From Singulair] Allergy Unknown Verified 06/04/22 11:10 ofloxacin Allergy Unknown Verified 06/04/22 11:13 pantoprazole [From Protonix] Allergy Unknown Verified 06/04/22 11:10 Ieszjfa-QOG-VhL Reductase Allergy muscle pain Verified 06/04/22 11:10 Inhibitor [Zepvaed-Jkc-Bww Reductase Inhibitor] Yeast Allergy Rash/Hives Verified 06/04/22 11:10 naproxen AdvReac Abdominal Verified 06/04/22 11:10 Pain DUST Allergy Unknown Uncoded 06/04/22 11:10 Review of Systems ROS Statement: Those systems with pertinent positive or pertinent negative responses have been documented in the HPI. ROS Other: All systems not noted in ROS Statement are negative. EKG Findings - EKG Results: EKG: interpreted by ROHAN, sinus rhythm (Sinus rhythm a 67 MN interval 223 QRS duration 102 QT/QTC 411/427 left exodeviation evidence of first-degree AV block occasional PVCs and PACs) Past Medical History Past Medical History: Deep Vein Thrombosis (DVT), Eye Disorder, Hearing Disorder / Deafness, Hypertension, Osteoarthritis (OA), Sleep Apnea/CPAP/BIPAP Additional Past Medical History / Comment(s): feels like there is fullness in the throat and food is getting stuck,uses cpap,dvt lt leg May 2016-uses compression stocking,[place]-[employer] hearing aides,macular degeneration timothy eyes,osteoarthritis lt hip History of Any Multi-Drug Resistant Organisms: None Reported Past Surgical History: Back Surgery, Orthopedic Surgery Additional Past Surgical History / Comment(s): rt shoulder repair Past Anesthesia/Blood Transfusion Reactions: Previous Problems w/ Anesthesia Additional Past Anesthesia/Blood Transfusion Reaction / Comment(s): unable to u rinated after anesthesia-has had to have catheter.no hx blood transfusion Past Psychological History: No Psychological Hx Reported Past Alcohol Use History: Rare Past Drug Use History: None Reported - Past Family History Mother Family Medical History: Cancer, CVA/TIA Additional Family Medical History / Comment(s): uterine Father Family Medical History: CVA/TIA, Myocardial Infarction ([place]) Sister(s) Additional Family Medical History / Comment(s): heart problems General Exam - General Exam Comments Initial Comments: This is a well-developed well-nourished awake alert oriented 3 male Limitations: no limitations General appearance: alert, anxious Head exam: Present: atraumatic, normocephalic, normal inspection Eye exam: Present: normal appearance, PERRL, EOMI. Absent: scleral icterus, conjunctival injection, periorbital swelling ENT exam: Present: normal exam, mucous membranes moist Neck exam: Present: normal inspection, full ROM, other (No stridor JVD or bruits). Absent: tenderness, meningismus, lymphadenopathy Respiratory exam: Present: normal lung sounds bilaterally. Absent: respiratory distress, wheezes, rales, rhonchi, stridor, chest wall tenderness Cardiovascular Exam: Present: regular rate, normal rhythm, normal heart sounds. Absent: systolic murmur, diastolic murmur, rubs, gallop, clicks GI/Abdominal exam: Present: soft, normal bowel sounds. Absent: distended, tenderness, guarding, rebound, rigid, bruit, pulsatile mass Extremities exam: Present: normal inspection, full ROM, normal capillary refill. Absent: tenderness, pedal edema, joint swelling, calf tenderness Back exam: Present: normal inspection Neurological exam: Present: alert, oriented X3, CN II-XII intact Psychiatric exam: Present: normal affect, normal mood Skin exam: Present: warm, dry, intact, normal color. Absent: rash Course Vital Signs 06/04/22 06/04/22 06/04/22 08:11 08:35 11:08 Temperature 98 F Pulse Rate 55 L 58 L 50 L Respiratory 18 18 18 Rate Blood Pressure 151/81 154/82 143/72 O2 Sat by Pulse 100 97 97 Oximetry 06/04/22 11:56 Temperature Pulse Rate 42 L Respiratory 16 Rate Blood Pressure 126/84 O2 Sat by Pulse 97 Oximetry - Reevaluation(s) Reevaluation #1: 06/04/22 09:59 Today's EKG compared with one dated 03/12/19 showing similar configuration except for the PVCs and PACs Reevaluation #2: 06/04/22 12:03 The patient still had chest pain he was given medication for this did help s omewhat. Chest Pain MDM - MDM Imaging reviewed x-rays are unremarkable however due to the elevated d-dimer the patient did have a CT angiogram done to rule out PE no PE seen however he does have evidence of an ascending thoracic aortic aneurysm measuring 4.7 cm long segment crescentic attenuation extending from the region of the brachiocephalic origin down to the visualized thoracic oh abdominal aorta likely representing intramural hematoma. Short segment of dissection of the ascending thoracic aorta with dissection flap identified with contrast in the false lumen please see complete report. I did discuss this with multiple family members and the patient patient family did present me with a list of facilities he would like him transferred to eventually he was accepted at [facility] in [place]. I did discuss the case with Dr. Teto Montenegro who is agreed to accept the patient in transfer. Patient blood pressure is controlled with labetalol at this time heart rate is acceptable. Patient has ALLERGIES to amlodipine and there is a large caution with Cardene which would be an alternative for blood pressure control. Patient's vitals are otherwise stable. Critical Care Time Critical Care Time: Yes Total Critical Care Time: 45 Critical Care Time: Critical care time includes initial history physical labs x-rays multiple repeat evaluations the patient and multiple discussions with the patient family members. Discussion with multiple Hospital transfer teams discussion with the [facility] and Dr. Garcia. Review of old charting that was available and documentation of the above. This also included discussion with paramedics prior to transfer. Disposition Clinical Impression: Chest pain, Acute thoracic aortic dissection, Ascending aortic aneurysm Disposition: TRANSFER TO PSYCH HOSP/UNIT Condition: Fair Referrals: Riley Drake MD [Primary Care Provider] - 1-2 days Decision Date: 06/04/22 Decision Time: 12:07 - Out of Hospital Transfer - Req. Specs Out of Hospital Transfer - Requested Specifics: Other Emergency Center
[2022-06-04] MEDS ORDERED: ASPIRIN 325 MG TAB PO STA (08:34)
[2022-06-04 08:41] LABS: Basophils % (A) 0 %; Eosinophils # (A) 0.1 k/uL (0-0.7); Eosinophils % (A) 1 %; HCT 40.2 % (39.0-53.0); HGB 12.7 gm/dL (13.0-17.5); Lymphocytes # (A) 3.3 k/uL (1.0-4.8); Lymphocytes % (A) 47 %; MCH 29.4 pg (25.0-35.0); MCHC 31.5 g/dL (31.0-37.0); MCV 93.3 fL (80.0-100.0); Mean Platelet Volume 7.9; Monocytes # (A) 0.4 k/uL (0-1.0); Monocytes % (A) 6 %; Neutrophils # (A) 3.1 k/uL (1.3-7.7); Neutrophils % (A) 43 %; Platelet Count 189 k/uL (150-450); RDW 13.3 % (11.5-15.5); WBC 7.1 k/uL (3.8-10.6)
[2022-06-04 08:57] LABS: Partial Thromboplastin Time 23.5 sec (22.0-30.0); Prothrombin Time 10.6 sec (9.0-12.0)
--- NOTE | 2022-06-04 08:58 | XR ---
EXAMINATION TYPE: XR chest 2V DATE OF EXAM: 06/04/2022 8:50 AM COMPARISON: Chest radiographs from 03/12/2019. TECHNIQUE: XR chest 2V Frontal and lateral views of the chest. CLINICAL INDICATION:Male, 82 years old with history of Chest Pain; FINDINGS: Lungs/Pleura: There is flattening of the diaphragm with increased lucency of the lungs. No evidence o f pneumothorax, pleural effusion or focal consolidation. Pulmonary vascularity: Unremarkable. Heart/mediastinum: Cardiomediastinal silhouette is prominent in size and stable. Musculoskeletal: Multiple level degenerative disc disease changes seen throughout the spine. No acute osseous abnormality. Dextroscoliotic curvature of the thoracic spine. Degenerative changes of the ri ght shoulder. IMPRESSION: No acute cardiopulmonary disease/process. COPD changes.
[2022-06-04 08:59] LABS: Albumin 4.2 g/dL (3.5-5.0); Calcium 9.3 mg/dL (8.4-10.2); Total Bilirubin 0.7 mg/dL (0.2-1.3)
--- NOTE | 2022-06-04 10:58 | CT ---
EXAMINATION TYPE: CT angio chest CT DLP: 321.7 mGycm, Automated exposure control for dose reduction was used. DATE OF EXAM: 06/04/2022 10:13 AM COMPARISON: Chest radiograph from same day. CLINICAL INDICATION:Male, 82 years old with history of PE suspected; SOB, chest tightness and back pa in, elevated d dimer TECHNIQUE/CONTRAST: CTA scan of the thorax is performed with IV Contrast, patient injected with 100, wasted 19 mL of Isov ue 370, pulmonary embolism protocol. MIP images are created and reviewed. FINDINGS: Pulmonary Artery: There is no evidence for a filling defect within the pulmonary vasculature to sugge st acute pulmonary embolism. Prominent bilateral pulmonary arteries can be seen in the setting of pul monary arterial hypertension. Reflux of contrast into the IVC and hepatic veins. Lungs/Pleura: No evidence of focal consolidation, pleural effusion or pneumothorax. Few scattered pul monary micronodules with largest along the left major fissure measuring up to 4 mm (Series 406, image 105). Airway: Large airways are patent. Heart: The heart is mildly enlarged for size. Coronary artery calcifications. Trace pericardial fluid . Vasculature: Ascending thoracic aorta aneurysm measuring up to 4.7 cm. Long segment crescentic attenu ation extending from the region of the brachiocephalic origin down to the visualized thoracoabdominal aorta likely representing intramural hematoma. Short segment dissection of the ascending thoracic ao rta with dissection flap identified and contrast within the false lumen (series 401, image 42). Ectas ia of the aorta the thoracoabdominal junction measuring up to 3.7 m. Mediastinum: No gross evidence of adenopathy. Large Zenker's diverticulum containing high density mat erial and gas centimeters. Musculoskeletal: No acute osseous abnormalities. Remote bilateral rib fractures. Degenerative changes of the visualized spine. Soft Tissues: Increased density posterior to the nipples bilaterally consistent with gynecomastia. Lower neck: No significant findings. Upper Abdomen: No significant findings. IMPRESSION: 1. Short segment dissection of the descending thoracic aorta with intramural hematoma extending from the origin of the brachiocephalic artery down to the visualized thoracicoabdominal junction aorta. 2. Ascending thoracic aortic aneurysm measuring up to 4.7 cm with ectasia of the aorta the thoracoabd ominal junction measuring up to 3.7 cm. 3. No evidence of pulmonary embolism. 4. Large Zenker's diverticulum. 5. Prominence of the main pulmonary arteries which can be seen setting of pulmonary arterial hyperten rima. 6. Few scattered pulmonary nodules measuring up to 4 mm. Attention on follow-up imaging. Findings called to and discussed with Dr. Ole Quiroz at 7:53 AM on 06/04/2022.
[2022-06-04] MEDS ORDERED: MORPHINE SULFATE 4 MG/ML SYRINGE IVP STA (11:04)
[2022-06-04] MEDS ORDERED: LABETALOL 5 MG/ML VIAL MDV IVP STA (11:38)
[2022-06-04] MEDS ORDERED: HYDROmorphone 1 MG/ML 1 ML SYRINGE IVP STA (11:38)
[2022-06-04 12:21] VITALS: BP 154/80; PULSE 49; RESP 18
== END 2022-06-04 12:23 ==
LOC: EC 08:08
DX: I71.2 Thoracic aortic aneurysm, without rupture (principal); I71.00 Dissection of unspecified site of aorta; I10 Essential (primary) hypertension; Z91.048 Other nonmedicinal substance allergy status; Z91.040 Latex allergy status; Z88.5 Allergy status to narcotic agent; Z88.9 Allergy status to unspecified drugs, medicaments and biological substances
CPT/HCPCS: 36415; 93005; 85379; 83880; 80053; 83605; 83690; 83735; 84484; 85025; 85610; 85730; 87635; 71046; 71275; 99291; 96374; 96375; 96361; J2270; Q9967

== ENCOUNTER → 2022-09-26 | Outpatient (CLI) | payer MEDICARE, OTHER ==
[2022-09-26 14:18] LABS: Basophils # (A) 0.02 X 10*3/uL (0.00-0.10); Basophils % (A) 0.3 %; Eosinophils # (A) 0.06 X 10*3/uL (0.04-0.35); Eosinophils % (A) 0.9 %; HCT 40.5 % (39.6-50.0); HGB 12.7 g/dL (13.0-17.0); Immature Grans, Automated 0.1 %; Lymphocytes # (A) 2.48 X 10*3/uL (0.90-5.00); MCH 28.9 pg (27.0-32.0); MCHC 31.4 g/dL (32.0-37.0); MCV 92.3 fL (80.0-97.0); Mean Platelet Volume 10.8 fL (9.5-12.2); Monocytes # (A) 0.79 X 10*3/uL (0.20-1.00); Monocytes % (A) 11.8 %; NRBC Per 100 WBC 0 /100 WBCS (0.0-0.0); Neutrophils # (A) 3.34 X 10*3/uL (1.80-7.70); Neutrophils % (A) 49.9 %; Platelet Count 202 X 10*3/uL (140-440); RBC 4.39 X 10*6/uL (4.40-5.60); RDW 15.1 % (11.5-14.5)
[2022-09-26 14:28] LABS: Erythrocyte Sedimentation Rate 11 mm/Hr (0-20)
[2022-09-26 15:00] LABS: ALT 20 U/L (10-49); AST 22 U/L (14-35); African American GFR (CKD) 69.3 (60.0-200.0); Albumin 4.3 g/dL (3.8-4.9); Albumin/Globulin Ratio 1.96 (1.60-3.17); Alkaline Phosphatase 73 U/L (41-126); BUN/Creat Ratio 16.28 Ratio (12.00-20.00); Blood Urea Nitrogen 18.4 mg/dL (9.0-27.0); Calcium 9.9 mg/dL (8.7-10.3); Carbon Dioxide 26.4 mmol/L (20.0-27.5); Chloride 105 mmol/L (96-109); Creatine Kinase 48 U/L (35-257); Globulin 2.2 g/dL (1.6-3.3); Glucose 97 mg/dL (70-110); Magnesium 2.2 mg/dL (1.5-2.4); Non-African American GFR(CKD) 59.8 (60.0-200.0); Phosphorus 3.6 mg/dL (2.4-5.1); Potassium 4.9 mmol/L (3.5-5.5); Sodium 144 mmol/L (135-145); Total Protein 6.5 g/dL (6.2-8.2); Uric Acid 5.1 mg/dL (3.7-8.7)
[2022-09-26 17:07] LABS: C Reactive Protein <0.30 mg/dL (0.00-0.80); Chol/HDL Ratio 2.09 Ratio; LDL Cholesterol,Calculated 106.3 mg/dL (0.0-131.0); VLDL Calculation 15.66 mg/dL (5.00-40.00)
== END | disposition home or self-care (01) ==
LOC: LABWHC1 09:48
PROVIDERS: ATTEND Internal Medicine
DX: Z00.00 Encounter for general adult medical examination without abnormal findings (principal); N40.0 Benign prostatic hyperplasia without lower urinary tract symptoms; J44.9 Chronic obstructive pulmonary disease, unspecified; I10 Essential (primary) hypertension; M10.00 Idiopathic gout, unspecified site; E87.8 Other disorders of electrolyte and fluid balance, not elsewhere classified; E78.5 Hyperlipidemia, unspecified; E03.9 Hypothyroidism, unspecified
CPT/HCPCS: 36415; 80053; 80061; 82306; 82550; 83735; 84100; 84153; 84439; 84443; 84550; 85025; 85652; 86140

== ENCOUNTER → 2022-09-28 | Outpatient (CLI) | payer MEDICARE, OTHER ==
--- NOTE | 2022-09-28 14:51 | P.PN ---
Subjective DATE: 09/28/2022 FOLLOW UP VISIT. Patient with obstructive sleep apnea hypopnea syndrome return to sleep center for follow-up visit. Information from previous visit have been reviewed. Patient is using PAP equipment every night for the whole night, getting PAP supplies in time. The patient does not have significant problems with the mask, PAP unit and humidification. Council sleepiness scale is 2, which is normal. I checked information from PAP unit. PAP unit pressure 7-15, average 13.5 cm H2O. Usage is 100 % for more then 4 hours, average 7.9 hours per night. Leak is increased to 40 l/m, patient is using nasal pillow mask and sometimes opening his mouth, trying to use chinstrap. Apnea Hypopnea Index is 5.3, which is borderline, improved comparing with the previous visit. MEDICATIONS:1. Losartan 100 mg once a day 2. Levothyroxine 50 g once a day 3. Metoprolol 25 mg twice a day 4. Claritin 10 mg as needed During physical exam: GENERAL: A pleasant patient without any distress. VITAL SIGNS: BP 158/84, HR 49, RR 18, weight 181.4, temperature 96.8, oxygen saturation at room air 98 % . HEENT: PERRLA, EOMI.low position of soft palate, Mallapati 3 . NECK: Supple. No JVD. LUNGS: Clear to percussion and to auscultation. Good air exchange. No wheezing or rhonchi. HEART: S1, S2 regular. ABDOMEN: Soft and nontender.[] EXTREMITIES: No clubbing or cyanosis. PARK KEEPER: Awake, alert, and oriented x3. No focal deficit. Impressions: 1. Obstructive sleep apnea-hypopnea syndrome. Patient demonstrated great compliance with treatment, benefiting from treatment. 2. Recently diagnosed with descending thoracic aortic aneurysm, planed for stent insertion in [facility]. 3. Hypertension. 4. Hyperlipidemia. 5. Hypothyroidism. 6. ALLERGIES. 7. History of hiatal hernia. 8. Status post lumbar laminectomy. 9. Status post total left fibular fracture. 10. Status post rotator cuff surgery in 2008. 11. Status post cataract surgery. 12.[]. Plan: 1. Continue using PAP equipment every night for the whole night. 2. To change air filter at least 1-2 times per month. 3. PAP unit should stay lower then position of the head. 4. Advised patient to remove all remaining water from humidifier canister daily and make it dry after each usage. Refill canister with fresh distilled water before each usage. 5. Sleep hygiene with regular time in bed for at least 8 hours. 6. Precautions related to driving. No driving if feel any sleepiness. 7. I will maintain prescription for PAP supplies including mask, tube, filters. 8. Follow up visit in 6 months or earlier if patient has any problems. 9. Watching weight. Thank you very much for allowing me to participate in the management of your patient. Tylor Stauffer MD, PhD, FAASM. Diplomat of [place] [employer], Sleep Medicine Board by [place] [employer] Grain Picker of [facility] [place]
== END ==
LOC: SLEEP 13:48
PROVIDERS: ATTEND Internal Medicine
DX: G47.33 Obstructive sleep apnea (adult) (pediatric) (principal); Z99.89 Dependence on other enabling machines and devices; I10 Essential (primary) hypertension; E03.9 Hypothyroidism, unspecified; E78.5 Hyperlipidemia, unspecified; Z98.890 Other specified postprocedural states; Z87.19 Personal history of other diseases of the digestive system; Z91.048 Other nonmedicinal substance allergy status; Z88.8 Allergy status to other drugs, medicaments and biological substances; Z91.040 Latex allergy status; Z88.1 Allergy status to other antibiotic agents; Z88.6 Allergy status to analgesic agent; Z87.891 Personal history of nicotine dependence
CPT/HCPCS: 99212

== ENCOUNTER → 2023-04-03 | Outpatient (CLI) | payer MEDICARE, OTHER ==
[2023-04-03 15:40] LABS: C Reactive Protein <0.30 mg/dL (0.00-0.80); Creatine Kinase 57 U/L (35-257)
== END | disposition home or self-care (01) ==
LOC: LABWHC1 10:21
PROVIDERS: ATTEND Internal Medicine
DX: E03.9 Hypothyroidism, unspecified (principal); E55.9 Vitamin D deficiency, unspecified
CPT/HCPCS: 36415; 82306; 82550; 84432; 84439; 84443; 85652; 86140; 86376; 86800

== ENCOUNTER → 2023-04-05 | Outpatient (CLI) | payer MEDICARE, OTHER ==
--- NOTE | 2023-06-21 14:06 | P.PN ---
Subjective DATE: 04/05/2023 FOLLOW UP VISIT. Patient with obstructive sleep apnea hypopnea syndrome return to sleep center for follow-up visit. Information from previous visit have been reviewed. Patient is using PAP equipment every night for the whole night, getting PAP supplies in time. The patient does not have significant problems with the mask, PAP unit and humidification. [place] sleepiness scale is 2, which is normal. I checked information from PAP unit. PAP unit pressure 7-15, average 13.4 cm H2O. Usage is 100 % for more then 4 hours, average 7.5 hours per night. Leak is 22 l/m, which is in acceptable range. Apnea Hypopnea Index is 4.4, which is normal. MEDICATIONS:1. Losartan 100 mg once a day 2. Metoprolol 25 mg twice a day 3. Claritin 10 mg as needed 4. Levothyroxine 50 g once a day During physical exam: GENERAL: A pleasant patient without any distress. VITAL SIGNS: BP 145/65, HR 47, RR 14 , weight 188, temperature 98.0, oxygen saturation at room air 100 % . HEENT: PERRLA, EOMI.low position of soft palate, Mallapati 3 . NECK: Supple. No JVD. LUNGS: Clear to percussion and to auscultation. Good air exchange. No wheezing or rhonchi. HEART: S1, S2 regular. ABDOMEN: Soft and nontender.[] EXTREMITIES: No clubbing or cyanosis. KEYPUNCHER: Awake, alert, and oriented x3. No focal deficit. Impressions: 1. Obstructive sleep apnea-hypopnea syndrome. Patient demonstrated great compliance with treatment, benefiting from treatment. 2. History of descending thoracic aortic aneurysm. 3. Hypertension. 4. Hypothyroidism. 5. ALLERGY. 6. Hyperlipidemia. 7. Status post laminectomy at lumbar area. 8. Status post cataract surgery. Plan: 1. Continue using PAP equipment every night for the whole night. 2. To change air filter at least 1-2 times per month. 3. PAP unit should stay lower then position of the head. 4. Advised patient to remove all remaining water from humidifier canister daily and make it dry after each usage. Refill canister with fresh distilled water before each usage. 5. Sleep hygiene with regular time in bed for at least 8 hours. 6. Precautions related to driving. No driving if feel any sleepiness. 7. I will maintain prescription for PAP supplies including mask, tube, filters. 8.Watching weight. 9. Follow up visit in 6 months or earlier if patient has any problems. Thank you very much for allowing me to participate in the management of your patient. Tylor Stauffer MD, PhD, FAASM. Diplomat of [place] [employer], Sleep Medicine Board by [place] [employer] Allied Health Teacher of [facility] [place]
== END ==
LOC: SLEEP 14:12
PROVIDERS: ATTEND Internal Medicine
DX: G47.33 Obstructive sleep apnea (adult) (pediatric) (principal); E03.9 Hypothyroidism, unspecified; I10 Essential (primary) hypertension; E78.5 Hyperlipidemia, unspecified; Z98.890 Other specified postprocedural states; Z86.79 Personal history of other diseases of the circulatory system; Z79.890 Hormone replacement therapy; Z79.899 Other long term (current) drug therapy; Z99.89 Dependence on other enabling machines and devices; Z91.048 Other nonmedicinal substance allergy status; Z91.040 Latex allergy status; Z88.8 Allergy status to other drugs, medicaments and biological substances; Z88.1 Allergy status to other antibiotic agents; Z87.891 Personal history of nicotine dependence
CPT/HCPCS: 99212

== ENCOUNTER → 2023-04-23 | Outpatient (CLI) | payer MEDICARE, OTHER ==
[2023-04-23 16:07] LABS: ALT 15 U/L (10-49); AST 21 U/L (14-35); VLDL Calculation 16.16 mg/dL (5.00-40.00)
[2023-04-23 16:40] LABS: Chol/HDL Ratio 2.05 Ratio; LDL Cholesterol,Calculated 88.1 mg/dL (0.0-131.0)
== END | disposition home or self-care (01) ==
LOC: LABWHC1 09:28
PROVIDERS: ATTEND Internal Medicine Interventional Cardiology
DX: E78.2 Mixed hyperlipidemia (principal)
CPT/HCPCS: 36415; 80061; 84450; 84460

== ENCOUNTER → 2023-10-03 | Outpatient (CLI) | payer MEDICARE, OTHER ==
[2023-10-03 17:09] LABS: Basophils # (A) 0.01 X 10*3/uL (0.00-0.10); Basophils % (A) 0.2 %; Eosinophils # (A) 0.08 X 10*3/uL (0.04-0.35); Eosinophils % (A) 1.3 %; HCT 35.4 % (39.6-50.0); HGB 11.5 g/dL (13.0-17.0); Lymphocytes # (A) 1.37 X 10*3/uL (0.90-5.00); Lymphocytes % (A) 22.8 %; MCH 28.9 pg (27.0-32.0); MCHC 32.5 g/dL (32.0-37.0); MCV 88.9 FL (80.0-97.0); Mean Platelet Volume 10.3 FL (9.5-12.2); Monocytes # (A) 0.68 X 10*3/uL (0.20-1.00); Monocytes % (A) 11.3 %; NRBC Per 100 WBC 0 X 10*3/uL (0.00-0.01); Neutrophils # (A) 3.85 X 10*3/uL (1.80-7.70); Neutrophils % (A) 63.9 %; Platelet Count 163 X 10*3/uL (140-440); RBC 3.98 X 10*6/uL (4.40-5.60); RDW 14.5 % (11.5-14.5); WBC 6.02 X 10*3/uL (4.50-10.00)
[2023-10-03 17:29] LABS: Erythrocyte Sedimentation Rate 18 mm/Hr (0-20)
[2023-10-03 17:43] LABS: % Iron Saturation 31.14 (15.00-50.00); ALT 16 U/L (10-49); AST 22 U/L (14-35); Albumin/Globulin Ratio 1.82 Ratio (1.60-3.17); Alkaline Phosphatase 79 U/L (41-126); BUN/Creat Ratio 15.75 Ratio (12.00-20.00); Blood Urea Nitrogen 18.9 mg/dL (9.0-27.0); C Reactive Protein <0.30 mg/dL (0.00-0.80); Calcium 9.6 mg/dL (8.7-10.3); Carbon Dioxide 25.9 mmol/L (21.6-31.8); Chloride 107 mmol/L (96-109); Chol/HDL Ratio 1.68 Ratio; Creatine Kinase 90 U/L (35-257); Ferritin 71.4 ng/mL (22.0-322.0); Globulin 2.2 g/dL (1.6-3.3); Glucose 96 mg/dL (70-110); Iron 109 UG/DL (65-175); LDL Cholesterol,Calculated 69.1 mg/dL (0.0-131.0); Magnesium 2.2 mg/dL (1.5-2.4); Phosphorus 3.4 mg/dL (2.4-5.1); Potassium 4.7 mmol/L (3.5-5.5); Prostate Specific Antigen 0.13 ng/mL (0.000-6.500); Sodium 144 mmol/L (135-145); T4, Free (Free Thyroxine) 1.17 ng/dL (0.80-1.80); Total Bilirubin 0.5 mg/dL (0.3-1.2); Total Iron Binding Capacity 350 UG/DL (228-460); Total Protein 6.2 g/dL (6.2-8.2); Uric Acid 5.2 mg/dL (3.7-8.7); VLDL Calculation 14.94 mg/dL (5.00-40.00)
== END | disposition home or self-care (01) ==
LOC: LABWHC1 09:34
PROVIDERS: ATTEND Internal Medicine
DX: Z00.00 Encounter for general adult medical examination without abnormal findings (principal); I12.9 Hypertensive chronic kidney disease with stage 1 through stage 4 chronic kidney disease, or unspecified chronic kidney disease; E87.8 Other disorders of electrolyte and fluid balance, not elsewhere classified; N18.30 Chronic kidney disease, stage 3 unspecified; D63.1 Anemia in chronic kidney disease; N40.0 Benign prostatic hyperplasia without lower urinary tract symptoms; E78.5 Hyperlipidemia, unspecified; E03.9 Hypothyroidism, unspecified; E66.9 Obesity, unspecified; E55.9 Vitamin D deficiency, unspecified; R80.9 Proteinuria, unspecified
CPT/HCPCS: 36415; 80053; 80061; 82306; 82550; 82728; 83540; 83550; 83735; 83970; 84100; 84153; 84439; 84443; 84550; 85025; 85652; 86140

== ENCOUNTER → 2023-10-11 | Outpatient (CLI) | payer MEDICARE, OTHER ==
--- NOTE | 2023-10-11 16:22 | P.PN ---
Subjective DATE: 10/11/2023 FOLLOW UP VISIT. Patient with obstructive sleep apnea hypopnea syndrome return to sleep center for follow-up visit. Information from previous visit have been reviewed. Patient is using PAP equipment every night for the whole night, getting PAP supplies in time. The patient does not have significant problems with the mask, PAP unit and humidification. [place] sleepiness scale is 2, which is normal. I checked information from PAP unit. PAP unit pressure 7-17, average 14 cm H2O. Usage is 100 % for more then 4 hours, average 7.9 hours per night. Leak is 25 l/m, which is in acceptable range. Apnea Hypopnea Index is 4.5, which is normal. MEDICATIONS:1. Levothyroxine 50 g once a day 2. Losartan 25 mg once a day 3. Metoprolol 25 mg half of the tablet twice a day 4. Flomax 0.4 mg once a day 5. Ezetimibe 10 mg once a day During physical exam: GENERAL: A pleasant patient without any distress. VITAL SIGNS: BP 144/74, HR 60, RR 12 , weight 197.6, temperature 97.4, oxygen saturation at room air 98 % . HEENT: PERRLA, EOMI.low position of soft palate, Mallapati 3 . NECK: Supple. No JVD. LUNGS: Clear to percussion and to auscultation. Good air exchange. No wheezing or rhonchi. HEART: S1, S2 regular. ABDOMEN: Soft and nontender.[] EXTREMITIES: No clubbing or cyanosis. SNOW REMOVAL/PLOWING: Awake, alert, and oriented x3. No focal deficit. Impressions: 1. Obstructive sleep apnea-hypopnea syndrome. Patient demonstrated great compliance with treatment, benefiting from treatment. 2. Hypertension. 3. Hypothyroidism. 4. Hyperlipidemia. 5. ALLERGY. 6. 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 7. Status post TURP in January 2023. Plan: 1. Continue using PAP equipment every night for the whole night. 2. To change air filter at least 1-2 times per month. 3. PAP unit should stay lower then position of the head. 4. Advised patient to remove all remaining water from humidifier canister daily and make it dry after each usage. Refill canister with fresh distilled water before each usage. 5. Sleep hygiene with regular time in bed for at least 8 hours. 6. Precautions related to driving. No driving if feel any sleepiness. 7. I will maintain prescription for PAP supplies including mask, tube, filters. 8. Follow up visit in 6 months or earlier if patient has any problems. 9. Watching weight. Thank you very much for allowing me to participate in the management of your patient. Tylor Stauffer MD, PhD, FAASM. Diplomat of [place] [employer], Sleep Medicine Board by [place] [employer] Orthotist/Prosthetist of [facility] [place]
== END ==
LOC: 3 N SLEEP 13:59
PROVIDERS: ATTEND Internal Medicine
DX: G47.33 Obstructive sleep apnea (adult) (pediatric) (principal); E78.5 Hyperlipidemia, unspecified; E03.9 Hypothyroidism, unspecified; I10 Essential (primary) hypertension; Z79.899 Other long term (current) drug therapy; Z79.890 Hormone replacement therapy; Z99.89 Dependence on other enabling machines and devices; Z90.79 Acquired absence of other genital organ(s); Z91.048 Other nonmedicinal substance allergy status; Z88.8 Allergy status to other drugs, medicaments and biological substances; Z91.040 Latex allergy status; Z88.1 Allergy status to other antibiotic agents; Z88.5 Allergy status to narcotic agent; Z88.3 Allergy status to other anti-infective agents; Z79.82 Long term (current) use of aspirin; Z87.891 Personal history of nicotine dependence; Z95.5 Presence of coronary angioplasty implant and graft
CPT/HCPCS: 99212

== ENCOUNTER → 2023-10-23 | Outpatient (CLI) | payer MEDICARE, OTHER ==
[2023-10-23 15:44] LABS: Chol/HDL Ratio 1.82 Ratio
[2023-10-23 15:45] LABS: ALT 16 U/L (10-49); AST 18 U/L (14-35); Albumin 4.2 g/dL (3.8-4.9); Albumin/Globulin Ratio 1.91 Ratio (1.60-3.17); Alkaline Phosphatase 76 U/L (41-126); BUN/Creat Ratio 17.55 Ratio (12.00-20.00); Blood Urea Nitrogen 19.3 mg/dL (9.0-27.0); Calcium 9.4 mg/dL (8.7-10.3); Chloride 106 mmol/L (96-109); Globulin 2.2 g/dL (1.6-3.3); Glucose 91 mg/dL (70-110); LDL Cholesterol,Calculated 79.7 mg/dL (0.0-131.0); Potassium 4.1 mmol/L (3.5-5.5); Sodium 140 mmol/L (135-145); Total Bilirubin 0.7 mg/dL (0.3-1.2); Total Protein 6.4 g/dL (6.2-8.2)
== END | disposition home or self-care (01) ==
LOC: LABWHC1 09:51
PROVIDERS: ATTEND Internal Medicine Interventional Cardiology
DX: E78.2 Mixed hyperlipidemia (principal)
CPT/HCPCS: 36415; 80053; 80061

== ENCOUNTER → 2024-05-07 | Outpatient (CLI) | payer MEDICARE, OTHER ==
[2024-05-07 15:56] LABS: ALT 19 U/L (10-49); AST 23 U/L (14-35); Albumin 4.3 g/dL (3.8-4.9); Albumin/Globulin Ratio 1.95 Ratio (1.60-3.17); Alkaline Phosphatase 74 U/L (41-126); BUN/Creat Ratio 16.08 Ratio (12.00-20.00); Blood Urea Nitrogen 20.9 mg/dL (9.0-27.0); Calcium 9.3 mg/dL (8.7-10.3); Chloride 106 mmol/L (96-109); Chol/HDL Ratio 2.05 Ratio; Globulin 2.2 g/dL (1.6-3.3); Glucose 101 mg/dL (70-110); LDL Cholesterol,Calculated 91.5 mg/dL (0.0-131.0); Potassium 4.3 mmol/L (3.5-5.5); Sodium 141 mmol/L (135-145); Total Bilirubin 0.5 mg/dL (0.3-1.2); Total Protein 6.5 g/dL (6.2-8.2)
== END | disposition home or self-care (01) ==
LOC: LABWHC1 09:23
PROVIDERS: ATTEND Internal Medicine Interventional Cardiology
DX: E78.2 Mixed hyperlipidemia (principal)
CPT/HCPCS: 36415; 80053; 80061

== ENCOUNTER → 2024-05-29 | Outpatient (CLI) | payer MEDICARE, OTHER ==
[2024-05-29 14:10] VITALS: BP 148/71; PULSE 49; RESP 16; TEMP 98.1
--- NOTE | 2024-05-29 14:46 | P.PROGSL ---
Subjective DATE: 05/29/2024 FOLLOW UP VISIT. Patient with obstructive sleep apnea hypopnea syndrome return to sleep center for follow-up visit. Information from previous visit have been reviewed. Patient is using PAP equipment every night for the whole night, getting PAP supplies in time. The patient does not have significant problems with the mask, PAP unit and humidification. [place] sleepiness scale is 2, which is normal. I checked information from PAP unit. PAP unit pressure 7-17, average 12.5 cm H2O. Usage is 100% for more then 4 hours, average 7.5 hours per night. Leak is 23 l/m, which is in acceptable range. Apnea Hypopnea Index is 4.6, which is normal. MEDICATIONS have been reviewed, please see below. During physical exam: GENERAL: A pleasant patient without any distress. VITAL SIGNS: Please see below, weight is 196.6 lbs. HEENT: PERRLA, EOMI.low position of soft palate, Mallapati 3. NECK: Supple. No JVD. LUNGS: Clear to percussion and to auscultation. Good air exchange. No wheezing or rhonchi. HEART: S1, S2 regular. ABDOMEN: Soft and nontender.[] EXTREMITIES: No clubbing or cyanosis. WATERPROOF BAG SEWER: Awake, alert, and oriented x3. No focal deficit. Impressions: 1. Obstructive sleep apnea-hypopnea syndrome. Patient demonstrated great compliance with treatment, benefiting from treatment. 2. Hypertension. 3. Hypothyroidism. 4. Hyperlipidemia. 5. 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 6. Allergy. 7. Status post TURP in January 2023. Plan: 1. Continue using PAP equipment every night for the whole night. CPAP unit is more than 5-year-old, but working well at the present time without problems. 2. Sleep hygiene with regular time in bed for at least 7.5-8 hours 3. PAP unit should stay lower then position of the head. 4. Advised patient to remove all remaining water from humidifier canister daily and make it dry after each usage. Refill canister with fresh distilled water before each usage. 5. Watching weight. 6. Precautions related to driving. No driving if feel any sleepiness. 7. I will maintain prescription for PAP supplies including mask, tube, filters. 8. Follow up visit in 6 months or earlier if patient has any problems. Thank you very much for allowing me to participate in the management of your patient. Tylor Stauffer MD, PhD, FAASM. Diplomat of [place] [employer], Sleep Medicine Board by [place] [employer] Coordinator [facility] [place] Objective - Vital Signs Vital Signs: Vital Signs Temp 98.1 F 05/29/24 14:09 Pulse 49 L 05/29/24 14:09 Resp 16 05/29/24 14:09 BP 148/71 05/29/24 14:09 Pulse Ox 97 05/29/24 14:09 FiO2 Home Medications: Home Medications Medication Instructions Recorded Confirmed Type Aspirin 325 mg PO DAILY 01/11/23 05/29/24 History Levothyroxine Sodium [Synthroid] 50 mcg PO DAILY 01/11/23 05/29/24 History Losartan [Cozaar] 12.5 mg PO DAILY 01/11/23 05/29/24 History Magnesium Hydroxide [Milk of 1 dose PO DAILY PRN 01/11/23 05/29/24 History Magnesia] Metoprolol Tartrate [Lopressor] 12.5 mg PO BID 01/11/23 05/29/24 History Sennosides/Docusate Sodium [Senna 1 each PO DAILY PRN 01/11/23 05/29/24 History Plus 8.6-50 mg Softgel] Tamsulosin HCl [Flomax] 0.4 mg PO DAILY 01/11/23 05/29/24 History Carboxymethylcellulos/Glycerin 1 drop BOTH EYES 05/29/24 05/29/24 History [Refresh Relieva 0.5-0.9% Drop] Cholecalciferol (Vitd3)/Vit K2 2,000 05/29/24 History [Vit D3-Vit K2 125-100 Mcg Sfgl] Ezetimibe [Zetia] 10 mg PO DAILY 05/29/24 05/29/24 History Furosemide [Lasix] 20 mg PO DAILY 05/29/24 05/29/24 History Loratadine [Claritin] 10 mg PO DAILY 05/29/24 05/29/24 History
== END ==
LOC: 3 N SLEEP 13:39
PROVIDERS: ATTEND Internal Medicine
DX: G47.33 Obstructive sleep apnea (adult) (pediatric) (principal); I10 Essential (primary) hypertension; E03.9 Hypothyroidism, unspecified; E78.5 Hyperlipidemia, unspecified; Z95.5 Presence of coronary angioplasty implant and graft; Z98.890 Other specified postprocedural states; Z99.89 Dependence on other enabling machines and devices; Z79.899 Other long term (current) drug therapy; Z79.890 Hormone replacement therapy; Z91.048 Other nonmedicinal substance allergy status; Z88.8 Allergy status to other drugs, medicaments and biological substances; Z91.040 Latex allergy status; Z88.1 Allergy status to other antibiotic agents; Z87.891 Personal history of nicotine dependence
CPT/HCPCS: 99212

== ENCOUNTER 2024-06-03 15:21 | Emergency (ER) | payer MEDICARE, OTHER ==
[2024-06-03 15:43] VITALS: TEMP 97.3
[2024-06-03 16:24] LABS: Basophils % (A) 0 %; Eosinophils # (A) 0.1 k/uL (0-0.7); Eosinophils % (A) 1 %; HGB 12.5 gm/dL (13.0-17.5); Lymphocytes # (A) 2.3 k/uL (1.0-4.8); Lymphocytes % (A) 32 %; MCH 29.9 pg (25.0-35.0); MCHC 32.8 g/dL (31.0-37.0); MCV 91.1 fL (80.0-100.0); Mean Platelet Volume 8.1; Monocytes # (A) 0.5 k/uL (0-1.0); Monocytes % (A) 6 %; Neutrophils # (A) 4.2 k/uL (1.3-7.7); Neutrophils % (A) 58 %; Platelet Count 179 k/uL (150-450); RBC 4.17 m/uL (4.30-5.90); RDW 13.9 % (11.5-15.5); WBC 7.3 k/uL (3.8-10.6)
--- NOTE | 2024-06-03 16:28 | XR ---
EXAMINATION TYPE: XR chest 2V DATE OF EXAM: 06/03/2024 4:23 PM CLINICAL INDICATION:Male, 84 years old with history of dysrhythmia; [facility] COMPARISON: 06/04/2022 TECHNIQUE: XR chest 2V Frontal view of the chest. FINDINGS: Lungs/Pleura: There is no evidence of pleural effusion, focal consolidation, or pneumothorax. Pulmonary vascularity: Unremarkable. Heart/mediastinum: Cardiomediastinal silhouette is unremarkable. Musculoskeletal: No acute osseous pathology. Aortic arch stent graft is present.. IMPRESSION: 1. No acute cardiopulmonary disease process. 2. COPD changes.
[2024-06-03 16:38] LABS: Partial Thromboplastin Time 24.9 sec (22.0-30.0); Prothrombin Time 10.6 sec (10.0-12.5)
[2024-06-03 16:43] LABS: ALT 15 U/L (4-49); AST 27 U/L (17-59); African American GFR (CKD) 69 (>60 ml/min/1.73 sqM); Alkaline Phosphatase 70 U/L (38-126); Anion Gap 9 mmol/L; Blood Urea Nitrogen 21 mg/dL (9-20); Calcium 9.3 mg/dL (8.4-10.2); Carbon Dioxide 22 mmol/L (22-30); Chloride 108 mmol/L (98-107); Glucose 127 mg/dL (74-99); Non-African American GFR(CKD) 59 (>60 ml/min/1.73 sqM); Potassium 3.9 mmol/L (3.5-5.1); Sodium 139 mmol/L (137-145); Total Bilirubin 0.7 mg/dL (0.2-1.3); Total Protein 6.5 g/dL (6.3-8.2)
--- NOTE | 2024-06-03 16:53 | ED ---
General Adult HPI - General Chief complaint: Arrhythmia/Palpitations Stated complaint: Irregular Heart rate Time Seen by Provider: 06/03/24 15:57 Source: patient, RN notes reviewed, old records reviewed Mode of arrival: ambulatory Limitations: no limitations - History of Present Illness Initial comments: 84-year-old male presenting for evaluation of palpitation, racing heart. Patient had tracked his heart rate greater than 100, up to 150. He denies a previous history of atrial fibrillation. He does check his vitals routinely at home which is how he noticed elevated heart rate. He denies central chest pain. No fever. No nausea vomiting. Patient has been eating and drinking well. - Related Data Home Medications Medication Instructions Recorded Confirmed Aspirin 325 mg PO DAILY 01/11/23 05/29/24 Levothyroxine Sodium [Synthroid] 50 mcg PO DAILY 01/11/23 05/29/24 Losartan [Cozaar] 12.5 mg PO DAILY 01/11/23 05/29/24 Magnesium Hydroxide [Milk of 1 dose PO DAILY PRN 01/11/23 05/29/24 Magnesia] Metoprolol Tartrate [Lopressor] 12.5 mg PO BID 01/11/23 05/29/24 Sennosides/Docusate Sodium [Senna 1 each PO DAILY PRN 01/11/23 05/29/24 Plus 8.6-50 mg Softgel] Tamsulosin HCl [Flomax] 0.4 mg PO DAILY 01/11/23 05/29/24 Ezetimibe [Zetia] 10 mg PO DAILY 05/29/24 05/29/24 Furosemide [Lasix] 20 mg PO DAILY 05/29/24 05/29/24 Loratadine [Claritin] 10 mg PO DAILY 05/29/24 05/29/24 Acetaminophen Tab [Tylenol] 325 mg PO Q4H PRN 06/03/24 06/03/24 Carboxymethylcellulose Sodium 1 drop BOTH EYES QID PRN 06/03/24 06/03/24 [Refresh Tears] Cholecalciferol [Vitamin D3 (25 100 mcg PO DAILY 06/03/24 06/03/24 Mcg = 1000 Iu)] Furosemide [Lasix] 20 mg PO DAILY PRN 06/03/24 06/03/24 Previous Rx's Medication Instructions Recorded Apixaban [Eliquis] 2.5 mg PO BID 14 Days #28 tab 06/03/24 Allergies Allergy/AdvReac Type Severity Reaction Status Date / Time adhesive Allergy skin Verified 06/03/24 17:37 redness latex Allergy skin Verified 06/03/24 17:37 redness Yeast Allergy Rash/Hives Verified 06/03/24 17:37 ofloxacin AdvReac Severe "Seriously Verified 06/03/24 17:37 high blood pressure", could not get it lowered. Quinolones AdvReac Severe "Seriously Verified 06/03/24 17:37 high blood pressure", could not get it lowered amlodipine [From Norvasc] AdvReac "Bad side Verified 06/03/24 17:37 effects" hydralazine AdvReac Hyperactive, Verified 06/03/24 17:37 mood/attitude changes montelukast [From Singulair] AdvReac "Bad side Verified 06/03/24 17:37 effects" naproxen AdvReac Abdominal Verified 06/03/24 17:37 Pain pantoprazole [From Protonix] AdvReac "Bad side Verified 06/03/24 17:37 effects" Tnzzhxv-AQL-KfO Reductase AdvReac muscle pain Verified 06/03/24 17:37 Inhibitor [Tbuedsv-Res-Uql Reductase Inhibitor] DUST Allergy Itching Uncoded 06/03/24 17:37 Review of Systems ROS Statement: Those systems with pertinent positive or pertinent negative responses have been documented in the HPI. ROS Other: All systems not noted in ROS Statement are negative. Past Medical History Past Medical History: Deep Vein Thrombosis (DVT), Eye Disorder, Hearing Disorder / Deafness, Hypertension, Osteoarthritis (OA), Sleep Apnea/CPAP/BIPAP Additional Past Medical History / Comment(s): feels like there is fullness in the throat and food is getting stuck,uses cpap,dvt lt leg May 2016-uses compression stocking,SELAWIK-timothy hearing aides,macular degeneration timothy eyes,osteoarthritis lt hip History of Any Multi-Drug Resistant Organisms: None Reported Past Surgical History: Back Surgery, Orthopedic Surgery Additional Past Surgical History / Comment(s): rt shoulder repair, aortic disection with stenting Past Anesthesia/Blood Transfusion Reactions: Previous Problems w/ Anesthesia Additional Past Anesthesia/Blood Transfusion Reaction / Comment(s): unable to urinated after anesthesia-has had to have catheter.no hx blood transfusion Past Psychological History: No Psychological Hx Reported Smoking Status: Never smoker Past Alcohol Use History: None Reported Past Drug Use History: None Reported - Past Family History Mother Family Medical History: Cancer, CVA/TIA Additional Family Medical History / Comment(s): uterine Father Family Medical History: CVA/TIA, Myocardial Infarction ([place]) Sister(s) Additional Family Medical History / Comment(s): heart problems General Exam Limitations: no limitations General appearance: alert, in no apparent distress Head exam: Present: atraumatic, normocephalic Eye exam: Present: normal appearance, PERRL Neck exam: Present: normal inspection. Absent: tenderness, meningismus Respiratory exam: Present: normal lung sounds bilaterally. Absent: respiratory distress, wheezes Cardiovascular Exam: Present: tachycardia, irregular rhythm GI/Abdominal exam: Present: soft. Absent: distended, tenderness, guarding Extremities exam: Present: other (Erythematous rash to the medial aspect of the distal left leg). Absent: calf tenderness Neurological exam: Present: alert, oriented X3 Psychiatric exam: Present: normal affect, normal mood Skin exam: Present: warm Course Vital Signs 06/03/24 06/03/24 06/03/24 15:38 16:40 17:00 Temperature 97.3 F L Pulse Rate 105 H 87 71 Respiratory 18 18 18 Rate Blood Pressure 130/62 144/101 144/101 O2 Sat by Pulse 97 98 98 Oximetry 06/03/24 17:31 Temperature Pulse Rate 74 Respiratory 16 Rate Blood Pressure 140/95 O2 Sat by Pulse 97 Oximetry Medical Decision Making - Medical Decision Making Was pt. sent in by a medical professional or institution (, PA, BUTTERMILK DRIER OPERATOR, urgent care, hospital, or half-way...) When possible be specific @ -No Did you speak to anyone other than the patient for history (EMS, parent, family, police, friend...)? What history was obtained from this source @ -No Did you review nursing and triage notes (agree or disagree)? Why? @ -I reviewed and agree with nursing and triage notes Were old charts reviewed (outside hosp., previous admission, EMS record, old EKG, old radiological studies, urgent care reports/EKG's, half-way records)? Report findings @ -No old charts were reviewed Differential Palpitations Ventricular arrhythmias, atrial arrhythmias, myocardial infarction, anemia, th yrotoxicosis, electrolyte imbalance, hypokalemia, pulmonary embolism, pulmonary disease, drugs, alcohol, anxiety, stress.... This is not meant to be an all-inclusive list. EKG interpreted by me (3pts min.). @Atrial fibrillation with RVR rate of 100 incomplete right bundle branch block, low voltage, QRS duration 100, QTc [address] segment elevation. X-rays interpreted by me (1pt min.). @ -Chest x-ray shows prior aortic graft without any acute process. CT interpreted by me (1pt min.). @ -None done U/S interpreted by me (1pt. min.). @ -None done What testing was considered but not performed or refused? (CT, X-rays, U/S, labs)? Why? @ -None What meds were considered but not given or refused? Why? @ -None Did you discuss the management of the patient with other professionals (professionals i.e. , PA, BUTTERMILK DRIER OPERATOR, lab, RT, psych nurse, 7th grade social studies teacher, vice president of brand management, teacher, control systems drafting officer, senior case manager)? Give summary @I discussed the case with Dr. Ryan Castillo who is familiar with this patient. He will see the patient in the next day or so. He recommends starting Eliquis at 2.5 mg twice daily and continuing all other medications as prescribed. Was smoking cessation discussed for >3mins.? @ -No Was critical care preformed (if so, how long)? @ -No Were there social determinants of health that impacted care today? How? (Homelessness, low income, unemployed, alcoholism, drug addiction, transport ation, low edu. Level, literacy, decrease access to med. care, nursing home, rehab)? @ -No Was there de-escalation of care discussed even if they declined (Discuss DNR or withdrawal of care, Hospice)? DNR status @ -No What co-morbidities impacted this encounter? (DM, HTN, Smoking, COPD, CAD, Cancer, CVA, ARF, Chemo, Hep., AIDS, mental health diagnosis, sleep apnea, morbid obesity)? @ -Hypertension, previous aortic dissection status post grafting Was patient admitted / discharged? Hospital course, mention meds given and route, prescriptions, significant lab abnormalities, going to OR and other perti nent info. @ -84-year-old male presenting with palpitation. Patient has noted to be in rate controlled A-fib which is believed to be a new diagnosis for this patient. He is on 12.5 mg of metoprolol twice daily. He has normal CBC with mild anemia which is improved from previous. Normal PT/INR, normal C MP, negative troponin. I discussed case with Dr. Ryan Castillo who is familiar with this patient, he requests that BMP and sed rate be added onto the patient's laboratory testing and that he will follow-up on these labs as well as follow-up with the patient. He request that Eliquis be initiated. Patient is asymptomatic at the time of discharge and will return with worsening or changing symptoms. Undiagnosed new problem with uncertain prognosis? @ -No Drug Therapy requiring intensive monitoring for toxicity (Heparin, Nitro, Insulin, Cardizem)? @ -No Were any procedures done? @ -No Diagnosis/symptom? @ -New onset atrial fibrillation Acute, or Chronic, or Acute on Chronic? @ -Acute Uncomplicated (without systemic symptoms) or Complicated (systemic symptoms)? @ -Default Side effects of treatment? @ -No Exacerbation, Progression, or Severe Exacerbation? @ -No Poses a threat to life or bodily function? How? (Chest pain, [place], [place], pneumonia, PE, COPD, DKA, ARF, appy, cholecystitis, CVA, Diverticulitis, Homicidal, Suicidal, threat to staff... and all critical care pts) @ -Low risk at this time - Lab Data Result diagrams: 06/03/24 15:47 06/03/24 15:47 Lab Results 06/03/24 06/03/24 06/03/24 Range/Units 15:47 15:47 15:47 WBC 7.3 (3.8-10.6) k/uL RBC 4.17 L (4.30-5.90) m/uL Hgb 12.5 L (13.0-17.5) gm/dL Hct 38.0 L (39.0-53.0) % MCV 91.1 (80.0-100.0) fL MCH 29.9 (25.0-35.0) pg MCHC 32.8 (31.0-37.0) g/dL RDW 13.9 (11.5-15.5) % Plt Count 179 (150-450) k/uL MPV 8.1 Neutrophils % 58 % Lymphocytes % 32 % Monocytes % 6 % Eosinophils % 1 % Basophils % 0 % Neutrophils # 4.2 (1.3-7.7) k/uL Lymphocytes # 2.3 (1.0-4.8) k/uL Monocytes # 0.5 (0-1.0) k/uL Eosinophils # 0.1 (0-0.7) k/uL Basophils # 0.0 (0-0.2) k/uL PT 10.6 (10.0-12.5) sec INR 1.0 (<1.2) APTT 24.9 (22.0-30.0) sec Sodium 139 (137-145) mmol/L Potassium 3.9 (3.5-5.1) mmol/L Chloride 108 H (98-107) mmol/L Carbon Dioxide 22 (22-30) mmol/L Anion Gap 9 mmol/L BUN 21 H (9-20) mg/dL Creatinine 1.13 (0.66-1.25) mg/dL Est GFR (CKD-EPI)AfAm 69 (>60 ml/min/1.73 sqM) Est GFR (CKD-EPI)NonAf 59 (>60 ml/min/1.73 sqM) Glucose 127 H (74-99) mg/dL Calcium 9.3 (8.4-10.2) mg/dL Magnesium 2.0 (1.6-2.3) mg/dL Total Bilirubin 0.7 (0.2-1.3) mg/dL AST 27 (17-59) U/L ALT 15 (4-49) U/L Alkaline Phosphatase 70 (38-126) U/L Troponin I (0.000-0.034) ng/mL Total Protein 6.5 (6.3-8.2) g/dL Albumin 4.0 (3.5-5.0) g/dL TSH 2.350 (0.465-4.680) mIU/L 06/03/24 Range/Units 15:47 WBC (3.8-10.6) k/uL RBC (4.30-5.90) m/uL Hgb (13.0-17.5) gm/dL Hct (39.0-53.0) % MCV (80.0-100.0) fL MCH (25.0-35.0) pg MCHC (31.0-37.0) g/dL RDW (11.5-15.5) % Plt Count (150-450) k/uL MPV Neutrophils % % Lymphocytes % % Monocytes % % Eosinophils % % Basophils % % Neutrophils # (1.3-7.7) k/uL Lymphocytes # (1.0-4.8) k/uL Monocytes # (0-1.0) k/uL Eosinophils # (0-0.7) k/uL Basophils # (0-0.2) k/uL PT (10.0-12.5) sec INR (<1.2) APTT (22.0-30.0) sec Sodium (137-145) mmol/L Potassium (3.5-5.1) mmol/L Chloride (98-107) mmol/L Carbon Dioxide (22-30) mmol/L Anion Gap mmol/L BUN (9-20) mg/dL Creatinine (0.66-1.25) mg/dL Est GFR (CKD-EPI)AfAm (>60 ml/min/1.73 sqM) Est GFR (CKD-EPI)NonAf (>60 ml/min/1.73 sqM) Glucose (74-99) mg/dL Calcium (8.4-10.2) mg/dL Magnesium (1.6-2.3) mg/dL Total Bilirubin (0.2-1.3) mg/dL AST (17-59) U/L ALT (4-49) U/L Alkaline Phosphatase (38-126) U/L Troponin I <0.012 (0.000-0.034) ng/mL Total Protein (6.3-8.2) g/dL Albumin (3.5-5.0) g/dL TSH (0.465-4.680) mIU/L Disposition Clinical Impression: Atrial fibrillation Disposition: HOME SELF-CARE Condition: Good Instructions (If sedation given, give patient instructions): A-fib (Atrial Fibrillation) (ED) Prescriptions: Apixaban [Eliquis] 2.5 mg PO BID 14 Days #28 tab Is patient prescribed a controlled substance at d/c from ED?: No Referrals: Riley Drake MD [Primary Care Provider] - 1-2 days Time of Disposition: 17:42
[2024-06-03 18:15] VITALS: BP 139/103; PULSE 76; RESP 18
== END 2024-06-03 18:15 | disposition home or self-care (01) ==
LOC: EC 15:21
DX: I48.91 Unspecified atrial fibrillation (principal); Z91.09 Other allergy status, other than to drugs and biological substances; Z91.018 Allergy to other foods; Z88.8 Allergy status to other drugs, medicaments and biological substances; Z88.1 Allergy status to other antibiotic agents; Z88.6 Allergy status to analgesic agent; Z91.040 Latex allergy status
CPT/HCPCS: 36415; 71046; 80053; 83735; 83880; 84443; 84484; 85025; 85610; 85652; 85730; 93005; 99285

== ENCOUNTER → 2024-12-16 | Outpatient (CLI) | payer MEDICARE, OTHER ==
[2024-12-16 12:26] LABS: Creatinine,Urine Random 51.4 mg/dL; Protein/Creatinine Ratio,Urine 0.136
[2024-12-16 19:10] LABS: Basophils # (A) 0.03 X 10*3/uL (0.00-0.10); Basophils % (A) 0.4 %; Eosinophils # (A) 0.06 X 10*3/uL (0.04-0.35); Eosinophils % (A) 0.8 %; HCT 39.6 % (39.6-50.0); HGB 12.5 g/dL (13.0-17.0); Lymphocytes # (A) 2.47 X 10*3/uL (0.90-5.00); Lymphocytes % (A) 33.2 %; MCH 29.2 pg (27.0-32.0); MCHC 31.6 g/dL (32.0-37.0); MCV 92.5 FL (80.0-97.0); Mean Platelet Volume 11.1 FL (9.5-12.2); Monocytes # (A) 0.81 X 10*3/uL (0.20-1.00); Monocytes % (A) 10.9 %; NRBC Per 100 WBC 0 X 10*3/uL (0.00-0.01); Neutrophils # (A) 4.04 X 10*3/uL (1.80-7.70); Neutrophils % (A) 54.3 %; Platelet Count 174 X 10*3/uL (140-440); RBC 4.28 X 10*6/uL (4.40-5.60); RDW 14.8 % (11.5-14.5); WBC 7.44 X 10*3/uL (4.50-10.00)
[2024-12-16 19:23] LABS: Erythrocyte Sedimentation Rate 13 mm/Hr (0-20)
[2024-12-16 19:25] LABS: Microalbumin Creatinine Ratio <23 mg/g Cr (0-30); Urine Creatinine 52.2 mg/dL (39.0-259.0)
[2024-12-16 19:53] LABS: % Iron Saturation 24.87 (15.00-50.00); BUN/Creat Ratio 16.57 Ratio (12.00-20.00); Blood Urea Nitrogen 23.2 mg/dL (9.0-27.0); C Reactive Protein <0.30 mg/dL (0.00-0.80); Chol/HDL Ratio 1.85 Ratio; Creatine Kinase 71 U/L (35-257); Glucose 100 mg/dL (70-110); Iron 93 UG/DL (65-175); LDL Cholesterol,Calculated 90.8 mg/dL (0.0-131.0); Magnesium 2.2 mg/dL (1.5-2.4); Phosphorus 3.6 mg/dL (2.4-5.1); Total Iron Binding Capacity 374 UG/DL (228-460); Uric Acid 5.7 mg/dL (3.7-8.7); VLDL Calculation 16.18 mg/dL (5.00-40.00)
[2024-12-16 19:54] LABS: ALT 16 U/L (10-49); AST 23 U/L (14-35); Albumin 4.3 g/dL (3.8-4.9); Albumin/Globulin Ratio 1.79 Ratio (1.60-3.17); Alkaline Phosphatase 68 U/L (41-126); Calcium 9.4 mg/dL (8.7-10.3); Carbon Dioxide 24.3 mmol/L (21.6-31.8); Chloride 104 mmol/L (96-109); Ferritin 75.9 ng/mL (22.0-322.0); Globulin 2.4 g/dL (1.6-3.3); Potassium 4.4 mmol/L (3.5-5.5); Prostate Specific Antigen 0.26 ng/mL (0.000-6.500); Sodium 140 mmol/L (135-145); T4, Free (Free Thyroxine) 1.16 ng/dL (0.80-1.80); Total Bilirubin 0.6 mg/dL (0.3-1.2); Total Protein 6.7 g/dL (6.2-8.2)
== END | disposition home or self-care (01) ==
LOC: LABWHC1 10:23
PROVIDERS: ATTEND Internal Medicine
DX: Z00.00 Encounter for general adult medical examination without abnormal findings (principal); I12.9 Hypertensive chronic kidney disease with stage 1 through stage 4 chronic kidney disease, or unspecified chronic kidney disease; E03.9 Hypothyroidism, unspecified; E78.5 Hyperlipidemia, unspecified; E55.9 Vitamin D deficiency, unspecified; D64.9 Anemia, unspecified; N40.0 Benign prostatic hyperplasia without lower urinary tract symptoms; M10.9 Gout, unspecified; N18.30 Chronic kidney disease, stage 3 unspecified; R80.9 Proteinuria, unspecified; R73.9 Hyperglycemia, unspecified
CPT/HCPCS: 36415; 80053; 80061; 82043; 82306; 82550; 82570; 82728; 83036; 83540; 83550; 83735; 83970; 84100; 84153; 84156; 84439; 84443; 84550; 85025; 85652; 86140

== ENCOUNTER → 2025-01-22 | Outpatient (CLI) | payer MEDICARE, OTHER ==
[2025-01-22 14:18] VITALS: BP 154/74; PULSE 52; RESP 16; TEMP 97.5
--- NOTE | 2025-01-22 14:55 | P.PROGSL ---
Subjective DATE: 01/22/2025 FOLLOW UP VISIT. Patient with obstructive sleep apnea hypopnea syndrome return to sleep center for follow-up visit. Information from previous visit have been reviewed. Patient is using PAP equipment every night for the whole night, getting PAP supplies in time. The patient does not have significant problems with the mask, PAP unit and humidification. [place] sleepiness scale is 2, which is normal. I checked information from PAP unit. PAP unit pressure 7-17, average 13.4 cm H2O. Usage is 100% for more then 4 hours, average 7.8 hours per night. Leak is 23 l/m, which is in acceptable range. Apnea Hypopnea Index is 5.5, which is normal. Motor life expectancy was exceeded, but CPAP unit is working well. MEDICATIONS have been reviewed, please see below. During physical exam: GENERAL: A pleasant patient without any distress. VITAL SIGNS: Please see below, weight is 198 lbs. HEENT: PERRLA, EOMI.low position of soft palate, [place] 3. NECK: Supple. No JVD. LUNGS: Clear to percussion and to auscultation. Good air exchange. No wheezing or rhonchi. HEART: S1, S2 regular. ABDOMEN: Soft and nontender.[] EXTREMITIES: No clubbing or cyanosis. OVEN ATTENDANT: Awake, alert, and oriented x3. No focal deficit. Impressions: 1. Obstructive sleep apnea-hypopnea syndrome. Patient demonstrated great compliance with treatment, benefiting from treatment. 2. Hypertension. 3. Hypothyroidism. 4. Hyperlipidemia. 5. 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 6. Allergy. 7. Status post TURP in January 2023. I changed range of pressure in [facility] unit to 8-17 cm of water, because patient feels that this not enough pressure in the mask in the moment when he is starting using CPAP, he does not use a ramp, Plan: 1. Continue using PAP equipment every night for the whole night. 2. Sleep hygiene with regular time in bed for at least 7.5-8 hours 3. PAP unit should stay lower then position of the head. 4. Advised patient to remove all remaining water from humidifier canister daily and make it dry after each usage. Refill canister with fresh distilled water before each usage. 5. Watching weight. 6. Precautions related to driving. No driving if feel any sleepiness. 7. I will maintain prescription for PAP supplies including mask, tube, filters. 8. Follow up visit in 8 months or earlier if patient has any problems. Thank you very much for allowing me to participate in the management of your patient. Tylor Stauffer MD, PhD, FAASM. Diplomat of [employer] [employer], Sleep Medicine Board by [place] [employer] [facility] [place] Objective - Vital Signs Vital Signs: Vital Signs Temp 97.5 F L 01/22/25 14:17 Pulse 52 L 01/22/25 14:17 Resp 16 01/22/25 14:17 BP 154/74 01/22/25 14:17 Pulse Ox 98 01/22/25 14:17 FiO2 Intake & Output 01/21/25 01/22/25 01/22/25 18:59 06:59 18:59 Weight 89.981 kg Home Medications: Home Medications Medication Instructions Recorded Confirmed Type Aspirin 325 mg PO DAILY 01/11/23 06/03/24 History Levothyroxine Sodium [Synthroid] 50 mcg PO DAILY 01/11/23 06/03/24 History Losartan [Cozaar] 25 mg PO BID 01/11/23 06/03/24 History Magnesium Hydroxide [Milk of 2,400 mg PO DAILY PRN 01/11/23 06/03/24 History Magnesia] Metoprolol Tartrate [Lopressor] 12.5 mg PO BID 01/11/23 06/03/24 History Sennosides/Docusate Sodium [Senna 1 tab PO DAILY PRN 01/11/23 06/03/24 History Plus 8.6-50 mg Softgel] Tamsulosin HCl [Flomax] 0.4 mg PO DAILY 01/11/23 06/03/24 History Ezetimibe [Zetia] 10 mg PO HS 05/29/24 06/03/24 History Furosemide [Lasix] 20 mg PO Q2D@1400 05/29/24 06/03/24 History Loratadine [Claritin] 10 mg PO DAILY PRN 05/29/24 06/03/24 History Acetaminophen Tab [Tylenol] 325 mg PO Q4H PRN 06/03/24 06/03/24 History Apixaban [Eliquis] 2.5 mg PO BID 14 Days #28 tab 06/03/24 Rx Carboxymethylcellulose Sodium 1 drop BOTH EYES QID PRN 06/03/24 06/03/24 History [Refresh Tears] Cholecalciferol [Vitamin D3 (25 100 mcg PO DAILY 06/03/24 06/03/24 History Mcg = 1000 Iu)] Furosemide [Lasix] 20 mg PO DAILY PRN 06/03/24 06/03/24 History
== END ==
LOC: 3 N SLEEP 13:45
PROVIDERS: ATTEND Internal Medicine
DX: G47.33 Obstructive sleep apnea (adult) (pediatric) (principal); I10 Essential (primary) hypertension; E78.5 Hyperlipidemia, unspecified; E03.9 Hypothyroidism, unspecified; Z90.79 Acquired absence of other genital organ(s); Z95.818 Presence of other cardiac implants and grafts; Z87.891 Personal history of nicotine dependence; Z91.048 Other nonmedicinal substance allergy status; Z91.040 Latex allergy status; Z91.018 Allergy to other foods; Z88.6 Allergy status to analgesic agent; Z88.1 Allergy status to other antibiotic agents; Z88.8 Allergy status to other drugs, medicaments and biological substances
CPT/HCPCS: 99212

== ENCOUNTER → 2025-03-09 | Outpatient (CLI) | payer MEDICARE, OTHER ==
[2025-03-09 15:50] LABS: BUN/Creat Ratio 14.69 Ratio (12.00-20.00); Blood Urea Nitrogen 19.1 mg/dL (9.0-27.0); Carbon Dioxide 23.8 mmol/L (21.6-31.8); Chloride 106 mmol/L (96-109); Chol/HDL Ratio 1.86 Ratio; Glucose 91 mg/dL (70-110); LDL Cholesterol,Calculated 86.6 mg/dL (0.0-131.0); Potassium 4.2 mmol/L (3.5-5.5); Sodium 143 mmol/L (135-145); VLDL Calculation 14.42 mg/dL (5.00-40.00)
[2025-03-09 15:51] LABS: ALT 14 U/L (10-49); AST 22 U/L (14-35); Albumin 4.1 g/dL (3.8-4.9); Albumin/Globulin Ratio 1.64 Ratio (1.60-3.17); Alkaline Phosphatase 71 U/L (41-126); Calcium 9.4 mg/dL (8.7-10.3); Globulin 2.5 g/dL (1.6-3.3); Total Bilirubin 0.6 mg/dL (0.3-1.2); Total Protein 6.6 g/dL (6.2-8.2)
== END | disposition home or self-care (01) ==
LOC: LABWHC1 09:38
PROVIDERS: ATTEND Internal Medicine Interventional Cardiology
DX: E78.2 Mixed hyperlipidemia (principal); I48.11 Longstanding persistent atrial fibrillation
CPT/HCPCS: 36415; 80053; 80061